=== PATIENT | male | born 1955 | race Caucasian/White ===

== ENCOUNTER 2023-01-31 17:30 | Inpatient (IN) | payer OTHER, SELFPAY ==
[2023-01-31] VITALS (24 sets, daily range): BP systolic 130–153; BP diastolic 71–84; PULSE 56–70; RESP 16–18; TEMP 36.3; O2SAT 96–98; BMI 23.5; BMI 26.4
--- NOTE | 2023-01-31 18:02 | ED_ITS ---
HPI - Abdominal Pain General Time Seen by Provider: 18:02 Date Seen: 01/31/23 Chief Complaint: Abdominal Pain Stated Complaint: Abdominal Pain Time Seen by Provider: 01/31/23 17:58 Source: patient and RN notes reviewed Mode of arrival: ambulatory Limitations: no limitations History of Present Illness HPI narrative: Patient is a 67-year-old male seen with the aid of the physician representative coming in with acute nausea vomiting and severe abdominal pain. He had emesis in triage. He is complaining of upper abdominal pain that is 10/10. He has never had any prior abdominal surgeries. He ate lunch around noon. About 2 hours later, started having the abdominal pain that is worsened. He wonders if it could be his gallbladder. Has had no fevers but feels chilled right now. No associated cough or cold symptoms. No diarrhea, no urinary symptoms. Denies any radiation to his chest. Denies any diabetes, no hypertension. Denies any medication use. MD elicited complaint: abdominal pain Related Data Home Medications Medication Instructions Recorded Confirmed No Known Home Medications 01/31/23 01/31/23 Allergies Allergy/AdvReac Type Severity Reaction Status Date / Time No Known Drug Allergies Allergy Verified 01/31/23 19:14 Review of Systems Status of ROS Reports: 10 or more systems reviewed and unremarkable except as noted in History and below [facility] Social History Smoking Status: Never smoker How often do you have a drink containing alcohol: never AUDIT-C Alcohol total score: 0 Non-prescribed substance use: denies use Exam Const: Vital Signs, click to edit/add: Vital Signs - 24 hr 01/31/23 17:41 01/31/23 18:11 01/31/23 19:49 Temperature 97.3 F L Pulse Rate Pulse Rate [Left P ulse Oximeter] 70 Respiratory Rate 16 Blood Pressure Blood Pressure [Ri ght Upper Arm] 144/81 H Pulse Oximetry 98 97 98 Oxygen Delivery Me thod Room Air Nasal Cannula Oxygen Flow Rate 1 01/31/23 18:58 01/31/23 19:00 01/31/23 19:29 Temperature Pulse Rate 60 61 61 Pulse Rate [Left P ulse Oximeter] Respiratory Rate Blood Pressure 146/73 H Blood Pressure [Ri ght Upper Arm] Pulse Oximetry 98 97 96 Oxygen Delivery Me thod Oxygen Flow Rate 01/31/23 19:30 01/31/23 19:45 01/31/23 20:06 Temperature Pulse Rate 59 L 58 L 59 L Pulse Rate [Left P ulse Oximeter] Respiratory Rate Blood Pressure 148/84 H Blood Pressure [Ri ght Upper Arm] Pulse Oximetry 96 98 96 Oxygen Delivery Me thod Nasal Cannula Oxygen Flow Rate 1 01/31/23 20:07 01/31/23 20:15 01/31/23 20:30 Temperature Pulse Rate 62 61 67 Pulse Rate [Left P ulse Oximeter] Respiratory Rate Blood Pressure Blood Pressure [Ri ght Upper Arm] Pulse Oximetry 97 96 96 Oxygen Delivery Me thod Nasal Cannula Nasal Cannula Nasal Cannula Oxygen Flow Rate 1 1 1 01/31/23 20:31 01/31/23 20:45 01/31/23 21:00 Temperature Pulse Rate 66 66 65 Pulse Rate [Left P ulse Oximeter] Respiratory Rate Blood Pressure 135/74 Blood Pressure [Ri ght Upper Arm] Pulse Oximetry 96 96 97 Oxygen Delivery Me thod Nasal Cannula Nasal Cannula Nasal Cannula Oxygen Flow Rate 1 1 1 01/31/23 21:02 01/31/23 21:03 01/31/23 21:15 Temperature Pulse Rate 70 64 66 Pulse Rate [Left P ulse Oximeter] Respiratory Rate Blood Pressure 131/71 Blood Pressure [Ri ght Upper Arm] Pulse Oximetry 96 97 96 Oxygen Delivery Me thod Nasal Cannula Nasal Cannula Nasal Cannula Oxygen Flow Rate 1 1 1 01/31/23 21:30 01/31/23 21:32 01/31/23 21:45 Temperature Pulse Rate 62 64 63 Pulse Rate [Left P ulse Oximeter] Respiratory Rate Blood Pressure 130/79 Blood Pressure [Ri ght Upper Arm] Pulse Oximetry 97 97 96 Oxygen Delivery Me thod Nasal Cannula Nasal Cannula Nasal Cannula Oxygen Flow Rate 1 1 1 01/31/23 22:00 01/31/23 22:01 Temperature Pulse Rate 58 L 61 Pulse Rate [Left P ulse Oximeter] Respiratory Rate Blood Pressure 142/78 H Blood Pressure [Ri ght Upper Arm] Pulse Oximetry 96 96 Oxygen Delivery Me thod Nasal Cannula Nasal Cannula Oxygen Flow Rate 1 1 67-year-old male whom looks uncomfortable. Pupils equal round reactive, sclera clear, no icterus. Oropharynx normal mucosa. Neck without any masses, do not appreciate any thyromegaly. Lungs are clear, no wheezing or crackles. CV regular rate and rhythm, no murmur, normal S1 and S2. Abdomen is mildly obese, epigastric to right upper quadrant tenderness with some generalization into the paraumbilical area. No lower extremity edema. Did ambulate into the ED of his own accord. Documenting provider has reviewed patient's vital signs: yes Course Course Hospital Course: patient is obviously in significant pain, will order IV morphine and Zofran. We will start with a right upper quadrant ultrasound. Certainly pancreatitis other intra-abdominal etiology including surgical pathology could be possible diagnoses. Will get a full complement of labs. Patient understands that he may have to have CT scanning. He is currently afebrile, infectious etiology seem less likely at this time. Consultations Consultation #1: Did talk to our general surgeon on-call Dr. Calvillo regarding this patient. Primary diagnosis would seem to be pancreatitis based on CT but the lipase is still pending. 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 She felt it would likely be difficult operate on him. 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 Also complicating his situation hears the elevated troponin. He definitely was not complaining of any chest pain. I did even ask if the pain radiated to his chest which he denied. This will have to be followed. His baseline EKG looks reassuring. She did feel that if he is just needing hospitalization for the pancreatitis it could be done here given that there are absolutely no beds in other institutions. I did eventually speak with our hospitalist regarding this patient and he did give report back to nursing staff who relayed message to me that he accepted the patient. Time: 19:58 Vital Signs Vital signs: Initial Vital Signs Temperature 97.3 F L 01/31/23 17:41 Temperature Source Temporal Artery Scan 01/31/23 17:41 Pulse Rate 70 01/31/23 17:41 Pulse Rhythm Regular 01/31/23 17:41 Respiratory Rate 16 01/31/23 17:41 Blood Pressure 144/81 H 01/31/23 17:41 Blood Pressure Mean 102 01/31/23 17:41 Blood Pressure Position Sitting 01/31/23 17:41 Pulse Oximetry 98 01/31/23 17:41 Oxygen Delivery Method Room Air 01/31/23 17:41 Vital Signs Temperature 97.3 F L 01/31/23 17:41 Pulse Rate 70 01/31/23 17:41 Respiratory Rate 16 01/31/23 17:41 Blood Pressure 144/81 H 01/31/23 17:41 Pulse Oximetry 98 01/31/23 17:41 Oxygen Delivery Method Room Air 01/31/23 17:41 Temperature 97.3 F L 01/31/23 17:41 Pulse Rate 61 01/31/23 22:01 Respiratory Rate 16 01/31/23 17:41 Blood Pressure 142/78 H 01/31/23 22:01 Pulse Oximetry 96 01/31/23 22:01 Oxygen Delivery Method Nasal Cannula 01/31/23 22:01 Oxygen Flow Rate 1 01/31/23 22:01 MDM - Abdominal Pain Differential Diagnosis Differential diagnosis: Likely abdominal pain, calculus of kidney, gastroenteritis, pancreatitis and small bowel obstruction Lab Data Attestation: I reviewed the patient's lab results. Labs: Lab Results 01/31/23 01/31/23 01/31/23 Range/Units 18:05 19:33 21:00 WBC 13.20 H (4.50-11.00) K/uL RBC 5.34 (4.30-5.90) m/uL Hgb 15.9 (13.5-17.5) gm/dL Hct 46.6 (37.0-53.0) % MCV 87 (80-100) fL MCH 30 (26-34) pg MCHC 34 (32-36) gm/dL RDW Coeff of Natalya 12.8 (11.5-15.5) % Plt Count 268 (140-440) K/uL Neut % (Auto) 79.9 H (42.0-72.0) % Lymph % (Auto) 14.1 L (20-44) % Gaines % (Auto) 5.5 (0.0-11.0) % Eos % (Auto) 0.2 (0.0-7.0) % Baso % (Auto) 0.1 (0.0-3.0) % Neut # (Auto) 10.50 H (1.7-7.0) K/uL Lymph # (Auto) 1.90 (0.90-2.90) K/uL Gaines # (Auto) 0.70 (0.00-0.90) K/UL Eos # (Auto) 0.00 (0.00-0.50) K/uL Baso # (Auto) 0.00 (0.00-0.30) K/uL Sodium 138 (135-149) mmol/L Potassium 3.9 (3.6-5.1) mmol/L Chloride 106 (96-114) mmol/L Carbon Dioxide 24 (20-32) mmol/L BUN 20 (7-30) mg/dL Creatinine 0.9 (0.5-1.5) mg/dL Estimated Creat Clear 60.02 Estimated GFR 94 ml/min Glucose 168 H (60-115) mg/dL Lactate 2.3 H (0.5-1.9) mmol/L Calcium 9.3 (8.4-10.6) mg/dL Total Bilirubin 1.7 H (0.1-1.5) mg/dL Direct Bilirubin 0.9 H (0.0-0.5) mg/dL AST 207 H (12-35) U/L ALT 106 H (4-50) U/L Alkaline Phosphatase 126 (40-150) U/L Lactate Baseline 1.5 (0.5-1.9) mmol/L Troponin I 0.11 H* 0.11 H* (0.01-0.04) ng/mL C-Reactive Protein 0.7 (0.5-1.0) mg/dL Total Protein 7.9 (6.0-8.3) g/dL Albumin 4.5 (3.3-5.0) g/dL Lipase 34398 H (23-300) U/L SARS-CoV-2 (PCR) Negative SARS-CoV-2 (Negative) Imaging Data US - abdomen: Attestation: I have reviewed the pertinent imaging results. Radiologist's impression: Patient: BRYAN KERR Facility:?[facility] Patient ID:?[id number] Site Patient ID:?[id number]. Site :?[id number] Study:?US Abdomen -01/31/2023 7:15:09 PM Ordering Physician:Osvaldo Mahoney Final Report: INDICATION: acute severe epigastric pain. TECHNIQUE: Ultrasound abdomen limited. Sonographic images of the right upper quadrant were obtained using pritchett-scale and color Doppler images. COMPARISON: CT abdomen and pelvis and pelvis from the same day. FINDINGS: Liver: Normal in size and echotexture. No suspicious masses. No intrahepatic biliary dilatation. Large 6.8 x 5.7 x 6.6 cm round hyperechoic mass adjacent to the right hepatic lobe without internal vascular flow. Gallbladder: Contracted. No stones or sludge. Normal wall thickness. No pericholecystic fluid. Common bile duct: Not visualized. Pancreas: Limited visualization is unremarkable. Right kidney: Normal in size. Normal echotexture and cortex. No suspicious m asses, stones, or hydronephrosis. Vasculature: Proximal IVC is unremarkable. IMPRESSION: Large 6.8 cm round hyperechoic mass adjacent to the right hepatic lobe without internal vascular flow. In conjunction with the comparison CT, this represents a large adrenal myelolipoma. The remainder of the exam is unremarkable. Dictated by Tylor Ovalle MD @ 01/31/2023 7:43:28 PM (Electronic Signature) CT scan - abdomen: Attestation: I have reviewed the pertinent imaging results. Radiologist's impression: Patient: BRYAN KERR Facility:?[facility] Patient ID:?[id number] Site Patient ID:?[id number]. Site :?[id number] Study:?CT Abdomen/Pelvis w/ 67cc [id number]/11/2023 7:23:59 PM Ordering Physician:?Eliz Mahoney Final Report: INDICATION: Abdominal pain, nausea, vomiting. TECHNIQUE: CT abdomen and pelvis acquired with 67 cc Isovue 370 IV contrast. COMPARISON: Abdominal ultrasound from the same day. FINDINGS: Lower chest: Minimal bilateral posterior dependent atelectasis. Calcified mediastinal lymph node appears Liver: Right adrenal fatty mass extending into the right hepatic lobe. Normal in size and otherwise normal attenuation. No additional suspicious masses. Gallbladder and bile ducts: Contracted. There is hyperdense material in the gallbladder neck which may represent calcified stones or biliary sludge. There is circumferential narrowing of the gallbladder fundus which could represent annular adenomyomatosis. No pericholecystic fluid or mural thickening. Mild intrahepatic biliary duct dilatation. Normal diameter common bile duct. Pancreas: Mild diffuse peripancreatic inflammation without focal well-formed fluid collection. Homogeneous parenchymal enhancement. No mass identified. Spleen: Calcified granuloma. Normal in size. No suspicious masses. Adrenal glands: Large right adrenal hypodense mass with macroscopic fat measuring 5.8 x 5.6 x 6.7 cm. The mass extends into the right hepatic lobe. No evidence for intra or extra lesional hemorrhage. There is no compression or mass effect on the inferior vena cava or right kidney. Kidneys: Unremarkable. No suspicious masses, stones, or hydronephrosis. GI tract: Small hiatal hernia. Diverticulosis without pericolonic inflammation. Normal in caliber. Normal appendix. Vasculature: Abdominal aorta is normal in caliber. Mesenteric arteries are patent. Lymph nodes: No lymphadenopathy. Peritoneum/Abdominal Wall: Unremarkable. No free air or significant free fluid. Pelvis: Unremarkable. Bones: Unremarkable for age. IMPRESSION: Acute pancreatitis without evidence of necrosis or peripancreatic fluid collection. Large, 6.7 cm right adrenal myelolipoma with extension into the right hepatic lobe. Recommend urology or general surgery consultation. Probable cholelithiasis versus biliary sludge. No evidence for cholecystitis. Possible annular adenomyomatosis. Please note that all CT scans at this facility use dose modulation, iterative reconstruction, and/or weight-based dosing when appropriate to reduce radiation dose to as low as reasonably achievable. Dictated by Tylor Ovalle MD @ 01/31/2023 7:54:02 PM (Electronic Signature) ECG Data Attestation: I personally reviewed and interpreted this ECG as follows: ( sinus bradycardia, 57 beats per minute. No acute ischemia on a or T-wave pattern abnormality. Isolated flipped T-waves in lead V1. QT corrected 412 milliseconds.) ECG interpretation date: 01/31/23 ECG interpretation time: 18:49 Prior ECG tracings: not available for review Critical Care Time Critical Care Time Critical Care Time: No Discharge Plan Discharge Clinical Impression: Pancreatitis Patient Disposition: Admitted As Inpatient Condition: Unchanged
--- NOTE | 2023-01-31 18:11 | CRLHL7_ITS ---
For Patients: As a result of the Century Cures Act, medical imaging exams and procedure reports are released immediately into your electronic medical record. You may view this report before your referring provider. If you have questions, please contact your health care provider. INDICATION: acute severe epigastric pain. TECHNIQUE: Ultrasound abdomen limited. Sonographic images of the right upper quadrant were obtained using pritchett-scale and color Doppler images. COMPARISON: CT abdomen and pelvis and pelvis from the same day. FINDINGS: Liver: Normal in size and echotexture. No suspicious masses. No intrahepatic biliary dilatation. Large 6.8 x 5.7 x 6.6 cm round hyperechoic mass adjacent to the right hepatic lobe without internal vascular flow. Gallbladder: Contracted. No stones or sludge. Normal wall thickness. No pericholecystic fluid. Common bile duct: Not visualized. Pancreas: Limited visualization is unremarkable. Right kidney: Normal in size. Normal echotexture and cortex. No suspicious masses, stones, or hydronephrosis. Vasculature: Proximal IVC is unremarkable. IMPRESSION: Large 6.8 cm round hyperechoic mass adjacent to the right hepatic lobe without internal vascular flow. In conjunction with the comparison CT, this represents a large adrenal myelolipoma. The remainder of the exam is unremarkable. Dictated by Tylor Ovalle MD @ 01/31/2023 7:43:28 PM (Electronically Signed)
[2023-01-31 18:22] LABS: Lactate* 2.3 mmol/L (0.5-1.9)
[2023-01-31 18:23] LABS: Basophils Percent Auto 0.1 % (0.0-3.0); Eosinophils Percent Auto 0.2 % (0.0-7.0); Hematocrit 46.6 % (37.0-53.0); Hemoglobin* 15.9 gm/dL (13.5-17.5); Immature Granulocytes Pct Auto 0.2 %; Lymphocytes Percent Auto 14.1 % (20-44); Mean Corpuscular HGB Conc 34 gm/dL (32-36); Mean Corpuscular Hemoglobin 30 pg (26-34); Mean Corpuscular Volume 87 fL (80-100); Monocytes Percent Auto 5.5 % (0.0-11.0); Neutrophils Percent Auto 79.9 % (42.0-72.0); Platelet Count* 268 K/uL (140-440); RDW Coefficient of Variation % 12.8 % (11.5-15.5); Red Blood Count 5.34 m/uL (4.30-5.90)
[2023-01-31 18:28] LABS: Slide Review Reflex No
[2023-01-31 18:43] LABS: Albumin* 4.5 g/dL (3.3-5.0); Chloride* 106 mmol/L (96-114)
[2023-01-31 18:44] LABS: Potassium* 3.9 mmol/L (3.6-5.1); Sodium* 138 mmol/L (135-149)
[2023-01-31] MEDS: 0.9 % SODIUM CHLORIDE 500 ML 500 ML IV (18:45)
[2023-01-31 18:46] LABS: Creatinine* 0.9 mg/dL (0.5-1.5); Est. Creatinine Clearance* 60.02; Estimated Glomerular Filt Rate 94 ml/min
[2023-01-31 18:47] LABS: Alanine Aminotransferase* 106 U/L (4-50); Alkaline Phosphatase* 126 U/L (40-150); Aspartate Amino Transferase* 207 U/L (12-35); Bilirubin Total* 1.7 mg/dL (0.1-1.5); Blood Urea Nitrogen* 20 mg/dL (7-30); Calcium* 9.3 mg/dL (8.4-10.6); Carbon Dioxide* 24 mmol/L (20-32); Glucose* 168 mg/dL (60-115); Total Protein* 7.9 g/dL (6.0-8.3)
--- NOTE | 2023-01-31 18:48 | CRLHL7_ITS ---
For Patients: As a result of the Century Cures Act, medical imaging exams and procedure reports are released immediately into your electronic medical record. You may view this report before your referring provider. If you have questions, please contact your health care provider. INDICATION: Abdominal pain, nausea, vomiting. TECHNIQUE: CT abdomen and pelvis acquired with 67 cc Isovue 370 IV contrast. COMPARISON: Abdominal ultrasound from the same day. FINDINGS: Lower chest: Minimal bilateral posterior dependent atelectasis. Calcified mediastinal lymph node appears Liver: Right adrenal fatty mass extending into the right hepatic lobe. Normal in size and otherwise normal attenuation. No additional suspicious masses. Gallbladder and bile ducts: Contracted. There is hyperdense material in the gallbladder neck which may represent calcified stones or biliary sludge. There is circumferential narrowing of the gallbladder fundus which could represent annular adenomyomatosis. No pericholecystic fluid or mural thickening. Mild intrahepatic biliary duct dilatation. Normal diameter common bile duct. Pancreas: Mild diffuse peripancreatic inflammation without focal well-formed fluid collection. Homogeneous parenchymal enhancement. No mass identified. Spleen: Calcified granuloma. Normal in size. No suspicious masses. Adrenal glands: Large right adrenal hypodense mass with macroscopic fat measuring 5.8 x 5.6 x 6.7 cm. The mass extends into the right hepatic lobe. No evidence for intra or extra lesional hemorrhage. There is no compression or mass effect on the inferior vena cava or right kidney. Kidneys: Unremarkable. No suspicious masses, stones, or hydronephrosis. GI tract: Small hiatal hernia. Diverticulosis without pericolonic inflammation. Normal in caliber. Normal appendix. Vasculature: Abdominal aorta is normal in caliber. Mesenteric arteries are patent. Lymph nodes: No lymphadenopathy. Peritoneum/Abdominal Wall: Unremarkable. No free air or significant free fluid. Pelvis: Unremarkable. Bones: Unremarkable for age. IMPRESSION: Acute pancreatitis without evidence of necrosis or peripancreatic fluid collection. Large, 6.7 cm right adrenal myelolipoma with extension into the right hepatic lobe. Recommend urology or general surgery consultation. Probable cholelithiasis versus biliary sludge. No evidence for cholecystitis. Possible annular adenomyomatosis. Please note that all CT scans at this facility use dose modulation, iterative reconstruction, and/or weight-based dosing when appropriate to reduce radiation dose to as low as reasonably achievable. Dictated by Tylor Ovalle MD @ 01/31/2023 7:54:02 PM (Electronically Signed)
[2023-01-31 18:50] LABS: C Reactive Protein* 0.7 mg/dL (0.5-1.0)
[2023-01-31] MEDS: ONDANSETRON 2 MG/ML inj 4 MG IVP (18:55)
[2023-01-31] MEDS: MORPHINE 4 MG/ML INJ IVP (18:55)
[2023-01-31 18:56] LABS: Bilirubin Direct* 0.9 mg/dL (0.0-0.5)
[2023-01-31 19:23] LABS: Troponin I* 0.11 ng/mL (0.01-0.04)
--- NOTE | 2023-01-31 19:46 | ED.NURSE ---
Pt O2 noted to be satting around 87% on room air. 2L O2 NC applied. MD notified. Pt satting ~99% on 2L. Titrated down to 1L.
[2023-01-31 20:19] LABS: SARS PCR* Negative SARS-CoV-2 (Negative)
[2023-01-31 20:24] LABS: Lipase* 25171 U/L (23-300)
[2023-01-31 21:35] LABS: Lactate Sepsis w/Reflex* 1.5 mmol/L (0.5-1.9)
[2023-01-31 21:41] LABS: Troponin I* 0.11 ng/mL (0.01-0.04)
[2023-01-31] MEDS: LACTATED RINGERS 1000 ML 1,000 ML IV (22:45)
--- NOTE | 2023-01-31 23:03 | PM.IMHP1 ---
Hospitalist- H&P: HPI History of Present Illness Date Seen: 01/31/23 Chief complaint: Abdominal Pain Narrative: Stefan Merino is a 67 year old male with limited past medical history presenting for evaluation of abdominal pain. The patient endorses nausea and vomiting with worsening epigastric abdominal pain, radiating to his back. Abdominal pain is 10/10 intensity. he denies chest pain, sob, fever. Denies chest pressure. He denies any alcohol intake/consumption. Denies hx of Diabetes. He denies any prescription medications. In the ED notable labs included WBC 13.2, lactate 2.3, Tbili 1.7, Dbili 0.9, AST 207, ALT 106, Trop 0.11-.0.11, lipase [address]. CT Abdomen showed Acute pancreatitis without evidence of necrosis or peripancreatic fluid collection. Large, 6.7 cm right adrenal myelolipoma with extension into the right hepatic lobe. Recommend urology or general surgery consultation. Probable cholelithiasis versus biliary sludge. No evidence for cholecystitis. Possible annular adenomyomatosis. He was started on IVf and admitted for further evaluation. Abdom US IMPRESSION: Large 6.8 cm round hyperechoic mass adjacent to the right hepatic lobe without internal vascular flow. In conjunction with the comparison CT, this represents a large adrenal myelolipoma. The remainder of the exam is unremarkable. CBD not visualized CT ABD Acute pancreatitis without evidence of necrosis or peripancreatic fluid collection. Large, 6.7 cm right adrenal myelolipoma with extension into the right hepatic lobe. Recommend urology or general surgery consultation. Probable cholelithiasis versus biliary sludge. No evidence for cholecystitis. Possible annular adenomyomatosis. PMHx-none PSHx-denies surgical hx Fam Hx-denies family hx of Diabetes Review of Systems Status of ROS: Reports: 10 or more systems reviewed and unremarkable except as noted in History and below [facility] Social History Smoking Status: Never smoker How often do you have a drink containing alcohol: never AUDIT-C Alcohol total score: 0 Non-prescribed substance use: denies use Meds Home Medications and Allergies Home Medications Medication Instructions Recorded Confirmed Type No Known Home Medications 01/31/23 01/31/23 History Allergies Allergy/AdvReac Type Severity Reaction Status Date / Time No Known Drug Allergies Allergy Verified 01/31/23 19:14 Exam Narrative: Exam Narrative: Gen: no acute distress HEENT: NCAT EOMI mmm Neck: Supple CV: RRR normal s1 s2 Lungs: CTAB Abd: mid epigastric tenderness no rebound or guarding Neuro: Alert, oriented, CN grossly intact; nonfocal screening exam Psych: appropriate affect MSK: age appropriate muscle mass Skin; Warm, dry no rash on face Const: Vital Signs, click to edit/add: Vital Signs - 24 hr 01/31/23 17:41 01/31/23 18:11 01/31/23 19:49 Temperature 97.3 F L Pulse Rate Pulse Rate [Left P ulse Oximeter] 70 Respiratory Rate 16 Blood Pressure Blood Pressure [Ri ght Upper Arm] 144/81 H Pulse Oximetry 98 97 98 Oxygen Delivery Me thod Room Air Nasal Cannula Oxygen Flow Rate 1 01/31/23 18:58 01/31/23 19:00 01/31/23 19:29 Temperature Pulse Rate 60 61 61 Pulse Rate [Left P ulse Oximeter] Respiratory Rate Blood Pressure 146/73 H Blood Pressure [Ri ght Upper Arm] Pulse Oximetry 98 97 96 Oxygen Delivery Me thod Oxygen Flow Rate 01/31/23 19:30 01/31/23 19:45 01/31/23 20:06 Temperature Pulse Rate 59 L 58 L 59 L Pulse Rate [Left P ulse Oximeter] Respiratory Rate Blood Pressure 148/84 H Blood Pressure [Ri ght Upper Arm] Pulse Oximetry 96 98 96 Oxygen Delivery Me thod Nasal Cannula Oxygen Flow Rate 1 01/31/23 20:07 01/31/23 20:15 01/31/23 20:30 Temperature Pulse Rate 62 61 67 Pulse Rate [Left P ulse Oximeter] Respiratory Rate Blood Pressure Blood Pressure [Ri ght Upper Arm] Pulse Oximetry 97 96 96 Oxygen Delivery Me thod Nasal Cannula Nasal Cannula Nasal Cannula Oxygen Flow Rate 1 1 1 01/31/23 20:31 01/31/23 20:45 01/31/23 21:00 Temperature Pulse Rate 66 66 65 Pulse Rate [Left P ulse Oximeter] Respiratory Rate Blood Pressure 135/74 Blood Pressure [Ri ght Upper Arm] Pulse Oximetry 96 96 97 Oxygen Delivery Me thod Nasal Cannula Nasal Cannula Nasal Cannula Oxygen Flow Rate 1 1 1 01/31/23 21:02 01/31/23 21:03 01/31/23 21:15 Temperature Pulse Rate 70 64 66 Pulse Rate [Left P ulse Oximeter] Respiratory Rate Blood Pressure 131/71 Blood Pressure [Ri ght Upper Arm] Pulse Oximetry 96 97 96 Oxygen Delivery Me thod Nasal Cannula Nasal Cannula Nasal Cannula Oxygen Flow Rate 1 1 1 01/31/23 21:30 01/31/23 21:32 01/31/23 21:45 Temperature Pulse Rate 62 64 63 Pulse Rate [Left P ulse Oximeter] Respiratory Rate Blood Pressure 130/79 Blood Pressure [Ri ght Upper Arm] Pulse Oximetry 97 97 96 Oxygen Delivery Me thod Nasal Cannula Nasal Cannula Nasal Cannula Oxygen Flow Rate 1 1 1 01/31/23 22:00 01/31/23 22:01 Temperature Pulse Rate 58 L 61 Pulse Rate [Left P ulse Oximeter] Respiratory Rate Blood Pressure 142/78 H Blood Pressure [Ri ght Upper Arm] Pulse Oximetry 96 96 Oxygen Delivery Me thod Nasal Cannula Nasal Cannula Oxygen Flow Rate 1 1 Hospitalist - H&P: Result Labs Labs: Short CBC 01/31/23 Range/Units 18:05 WBC 13.20 H (4.50-11.00) K/uL Hgb 15.9 (13.5-17.5) gm/dL Hct 46.6 (37.0-53.0) % Plt Count 268 (140-440) K/uL BMP 01/31/23 18:05 Sodium 138 Potassium 3.9 Chloride 106 Carbon Dioxide 24 BUN 20 Creatinine 0.9 Glucose 168 H Calcium 9.3 Cardiac Enzymes 01/31/23 01/31/23 Range/Units 18:05 21:00 Troponin I 0.11 H* 0.11 H* (0.01-0.04) ng/mL Liver Function 01/31/23 Range/Units 18:05 Total Bilirubin 1.7 H (0.1-1.5) mg/dL Direct Bilirubin 0.9 H (0.0-0.5) mg/dL AST 207 H (12-35) U/L ALT 106 H (4-50) U/L Alkaline Phosphatase 126 (40-150) U/L Albumin 4.5 (3.3-5.0) g/dL Assessment and Plan Assessment and plan (1) Pancreatitis: Status: Acute (2) Abnormal LFTs: Status: Acute (3) Hyperglycemia: Status: Acute (4) Elevated troponin: Status: Acute (5) Non-Northern Irish speaking patient: Status: Acute Plan Stefan Merino is a 67 year old male with limited past medical history presenting for evaluation of abdominal pain. The patient endorses nausea and vomiting with worsening epigastric abdominal pain, radiating to his back. Abdominal pain is 10/10 intensity. he denies chest pain, sob, fever. Denies chest pressure. He denies any alcohol intake/consumption. Denies hx of Diabetes. He denies any prescription medications. In the ED notable labs included WBC 13.2, lactate 2.3, Tbili 1.7, Dbili 0.9, AST 207, ALT 106, Trop 0.11-.0.11, lipase [address]14. CT Abdomen showed?Acute pancreatitis without evidence of necrosis or peripancreatic fluid collection. Large, 6.7 cm right adrenal myelolipoma with extension into the right hepatic lobe. Recommend urology or general surgery consultation. Probable cholelithiasis versus biliary sludge. No evidence for cholecystitis. Possible annular adenomyomatosis. He was started on IVf and admitted for further evaluation. 1. Acute pancreatitis; rule out gallstone pancreatitis, CBD not visualized on US 2. lactic acidosis; resolved 3. Elevated Troponin; likely supply demand mediated ischemia secondary to number #1 4. Leukocytosis; likely reactive secondary to #1 5. Large right adrenal myelolipoma Plan -admit to inpatient -aggressive IVF -pain control -npo -antiemetics -Follow LFts, lipase -repeat lactate normalized -check Lipid panel -check a1c -tele -Echo -PPI -MRCP in AM -non emergent surgical consult in AM (ED discussed with Gen Surgery in ED) Code-Full DVT ppx-SCD
[2023-01-31] MEDS: cefTRIAXone 2 GM in 0.9 % SODIUM CHLORIDE Mini-bag 100 ML IVPB (23:53)
[2023-01-31] MEDS: PANTOPRAZOLE SODIUM 40 MG INJ IVP (23:56)
[2023-01-31] MEDS: LACTATED RINGERS 1000 ML 1,000 ML 250 ML IV (23:58)
[2023-02-01] VITALS (9 sets, daily range): BP systolic 147–163; BP diastolic 64–88; PULSE 51–67; RESP 14–18; TEMP 36.3–36.9; O2SAT 92–97
[2023-02-01] MEDS: LACTATED RINGERS 1000 ML 1,000 ML 250 ML IV ×5 (04:52→21:42)
--- NOTE | 2023-02-01 06:29 | PC.NURSE ---
[id number] Shift Summary? 89 F. O. 67 Pancreatitis ? Admitted pt around 2230. Pt comes from apartment to ED with abdominal pain. Friend at bedside as emergency contact. Pt is Iraqi speaking and video position classification specialist was utilized. Oriented to room, call light, etc.?Reports a ?bad gallbladder? but no past surgeries. NPO for MRI today (screening in room) with ice chips. IV abx and protonix given, LR running @ 250. Pain managed and declined PRNs. Denies nausea. On tele with no issues. Elevated troponin,?lipase, and WBCs. On 1L for desating overnight but may wean as able. Up to BR with SBA. Last BM 01/31?
--- NOTE | 2023-02-01 07:00 | CRLHL7_ITS ---
For Patients: As a result of the Century Cures Act, medical imaging exams and procedure reports are released immediately into your electronic medical record. You may view this report before your referring provider. If you have questions, please contact your health care provider. Indication: Abdominal pain. Technique: Multisequence multiplanar MRI of the abdomen without IV contrast. Comparison: CT abdomen/pelvis dated 01/31/2023. Findings: Liver: Mild diffuse hepatic steatosis. Bile ducts: No significant biliary duct dilation. There are few punctate filling defects within the common bile duct, compatible with choledocholithiasis. Gallbladder: Few small layering gallstones at the gallbladder neck. No significant pericholecystic inflammation. Pancreas: Diffuse peripancreatic edema, compatible with acute pancreatitis. There is no dilation of the main pancreatic duct. No organized fluid collection. Spleen: Unremarkable. Adrenals: Heterogeneous predominantly fat containing right adrenal mass measuring up to 6.5 cm, which appears to have invaded into the right lobe of the liver. Kidneys: No hydronephrosis bilaterally. Small left renal cyst is noted. Retroperitoneum: No lymphadenopathy. Visualized Bowel and mesentery: Visualized bowel is nondilated. Scattered colonic diverticulosis, without evidence of acute diverticulitis. Vessels: Unremarkable for unenhanced study. Abdominal wall: No acute abdominal wall abnormality. Bones: No acute osseous abnormality. Impression: 1. Diffuse peripancreatic edema, compatible with acute pancreatitis. No organized fluid collection. 2. Few punctate filling defects within the common bile duct, compatible with choledocholithiasis. No significant biliary duct dilation. 3. Cholelithiasis. Mild diffuse hepatic steatosis. 4. Large heterogeneous predominantly fat containing right adrenal mass measuring up to 6.5 cm, which appears to have invaded into the right lobe of the liver. Dictated by Ivon Greco MD @ 02/01/2023 2:03:54 PM (Electronically Signed)
[2023-02-01] MEDS: OXYCODONE 5 MG TABLET PO (07:07)
[2023-02-01] MEDS: ONDANSETRON 2 MG/ML inj 4 MG IVP (07:08)
[2023-02-01 07:24] LABS: Albumin* 3.9 g/dL (3.3-5.0)
[2023-02-01 07:25] LABS: Chloride* 108 mmol/L (96-114); Potassium* 3.8 mmol/L (3.6-5.1); Sodium* 138 mmol/L (135-149)
[2023-02-01 07:27] LABS: Aspartate Amino Transferase* 68 U/L (12-35); Bilirubin Direct* 0.3 mg/dL (0.0-0.5); Blood Urea Nitrogen* 16 mg/dL (7-30); Carbon Dioxide* 23 mmol/L (20-32); Creatinine* 0.7 mg/dL (0.5-1.5); Est. Creatinine Clearance* 60.02; Estimated Glomerular Filt Rate 101 ml/min; Total Protein* 6.9 g/dL (6.0-8.3)
[2023-02-01 07:28] LABS: Alanine Aminotransferase* 83 U/L (4-50); Alkaline Phosphatase* 104 U/L (40-150); Calcium* 8.5 mg/dL (8.4-10.6); Cholesterol* 138 mg/dL (90-199); Glucose* 175 mg/dL (60-115); HDL Cholesterol* 64 mg/dL (>=40); Triglycerides* 30 mg/dL (40-149)
[2023-02-01 07:29] LABS: INR 1.14 (0.91-1.10); Prothrombin Time 15.2 Seconds
[2023-02-01 07:40] LABS: Hemoglobin A1C* 6.46 % (0-5.6)
[2023-02-01 07:41] LABS: LDL Cholesterol Calculated 68 mg/dL (<100); Lipase* 2030 U/L (23-300); Procalcitonin* 0.45 ng/mL (<0.50)
[2023-02-01 07:48] LABS: Hematocrit 47.4 % (37.0-53.0); Hemoglobin* 16.2 gm/dL (13.5-17.5); Immature Granulocytes Pct Auto 0.3 %; Lymphocytes Percent Auto 3.4 % (20-44); Mean Corpuscular HGB Conc 34 gm/dL (32-36); Mean Corpuscular Hemoglobin 30 pg (26-34); Mean Corpuscular Volume 88 fL (80-100); Monocytes Percent Auto 4.4 % (0.0-11.0); Neutrophils Percent Auto 91.9 % (42.0-72.0); Platelet Count* 235 K/uL (140-440); RDW Coefficient of Variation % 13.3 % (11.5-15.5); Red Blood Count 5.36 m/uL (4.30-5.90); White Blood Count* 14.83 K/uL (4.50-11.00)
[2023-02-01 07:56] LABS: Slide Review Reflex No
[2023-02-01 08:06] LABS: Troponin I* 0.11 ng/mL (0.01-0.04)
[2023-02-01] MEDS: HYDROmorphone 0.5 mg/0.5 ml inj IVP ×2 (08:39→11:30)
[2023-02-01] MEDS: SODIUM CHLORIDE 0.9 % (FLUSH) 10 ML SYRINGE 5 ML IVF (08:40)
--- NOTE | 2023-02-01 14:52 | PC.NURSE ---
Patient is kittitian speaking and requires meter shop superintendent, tech writer utilized IPad meter shop superintendent for interactions.Patient alert and oriented x 3, patient was sleeping on and off throughout the shift. Pain to epigastric and left upper quadrant. PRn dilaudid and effective in reducing pain report. Patient continues to be NPO. Bowel sounds active x 4 quadrant.
--- NOTE | 2023-02-01 14:54 | PM.IMPN1 ---
Progress Note: A&P Assessment and plan (1) Pancreatitis: Problem details: - lipase on admission 01853, trended down to 1999 on 02/01 Status: Acute (2) Abnormal LFTs: Problem details: - noted on admission 01/31, trending downward Status: Acute (3) Hyperglycemia: Problem details: - A1C 6.5 Status: Acute (4) Elevated troponin: Problem details: - peak at 0.11, TTE 01/31 and results pending Status: Acute (5) Choledocholithiasis: Problem details: - on MRCP 02/01 - reviewed with Dr. Carrillo of [facility]; we've arranged for transfer and ERCP at [facility] tomorrow afternoon Status: Acute Subjective Date Seen: 02/01/23 Interval history: Patient continues to have intermittent left-sided abdominal pain, specifically denies chest pain or dyspnea. No other concerns for hospitalist team this morning. MRCP exhibits pancreatitis and choledocholithiasis, in addition to a large heterogeneous predominantly fat containing right adrenal mass that appears to invade the right lobe of the liver. Exam Narrative: Exam Narrative: GEN: Alert and nontoxic in appearance HEENT: Normal external ears, EOMIs bilaterally, no scleral icterus CV: RRR, No concerning murmurs, rubs, or gallops R: LCTA bilaterally without concerning wheezing, air movement adequate Ab: soft, mild discomfort LLQ, negative Reardon's sign Ext: wwp, no concerning edema Skin: No jaundice, no concerning skin lesions or rashes on exposed skin Neuro: Nonfocal Psych: Appropriate Const: Vital Signs, click to edit/add: Vital Signs - 24 hr 01/31/23 17:41 01/31/23 18:11 01/31/23 19:49 Temperature 97.3 F L Pulse Rate Pulse Rate [Left P ulse Oximeter] 70 Pulse Rate [Pulse Oximeter] Respiratory Rate 16 Blood Pressure Blood Pressure [Le ft Arm] Blood Pressure [Ri ght Upper Arm] 144/81 H Pulse Oximetry 98 97 98 Oxygen Delivery Me thod Room Air Nasal Cannula Oxygen Flow Rate 1 01/31/23 18:58 01/31/23 19:00 01/31/23 19:29 Temperature Pulse Rate 60 61 61 Pulse Rate [Left P ulse Oximeter] Pulse Rate [Pulse Oximeter] Respiratory Rate Blood Pressure 146/73 H Blood Pressure [Le ft Arm] Blood Pressure [Ri ght Upper Arm] Pulse Oximetry 98 97 96 Oxygen Delivery Me thod Oxygen Flow Rate 01/31/23 19:30 01/31/23 19:45 01/31/23 20:06 Temperature Pulse Rate 59 L 58 L 59 L Pulse Rate [Left P ulse Oximeter] Pulse Rate [Pulse Oximeter] Respiratory Rate Blood Pressure 148/84 H Blood Pressure [Le ft Arm] Blood Pressure [Ri ght Upper Arm] Pulse Oximetry 96 98 96 Oxygen Delivery Me thod Nasal Cannula Oxygen Flow Rate 1 01/31/23 20:07 01/31/23 20:15 01/31/23 20:30 Temperature Pulse Rate 62 61 67 Pulse Rate [Left P ulse Oximeter] Pulse Rate [Pulse Oximeter] Respiratory Rate Blood Pressure Blood Pressure [Le ft Arm] Blood Pressure [Ri ght Upper Arm] Pulse Oximetry 97 96 96 Oxygen Delivery Me thod Nasal Cannula Nasal Cannula Nasal Cannula Oxygen Flow Rate 1 1 1 01/31/23 20:31 01/31/23 20:45 01/31/23 21:00 Temperature Pulse Rate 66 66 65 Pulse Rate [Left P ulse Oximeter] Pulse Rate [Pulse Oximeter] Respiratory Rate Blood Pressure 135/74 Blood Pressure [Le ft Arm] Blood Pressure [Ri ght Upper Arm] Pulse Oximetry 96 96 97 Oxygen Delivery Me thod Nasal Cannula Nasal Cannula Nasal Cannula Oxygen Flow Rate 1 1 1 01/31/23 21:02 01/31/23 21:03 01/31/23 21:15 Temperature Pulse Rate 70 64 66 Pulse Rate [Left P ulse Oximeter] Pulse Rate [Pulse Oximeter] Respiratory Rate Blood Pressure 131/71 Blood Pressure [Le ft Arm] Blood Pressure [Ri ght Upper Arm] Pulse Oximetry 96 97 96 Oxygen Delivery Me thod Nasal Cannula Nasal Cannula Nasal Cannula Oxygen Flow Rate 1 1 1 01/31/23 21:30 01/31/23 21:32 01/31/23 21:45 Temperature Pulse Rate 62 64 63 Pulse Rate [Left P ulse Oximeter] Pulse Rate [Pulse Oximeter] Respiratory Rate Blood Pressure 130/79 Blood Pressure [Le ft Arm] Blood Pressure [Ri ght Upper Arm] Pulse Oximetry 97 97 96 Oxygen Delivery Me thod Nasal Cannula Nasal Cannula Nasal Cannula Oxygen Flow Rate 1 1 1 01/31/23 22:00 01/31/23 22:01 01/31/23 22:36 Temperature Pulse Rate 58 L 61 Pulse Rate [Left P ulse Oximeter] Pulse Rate [Pulse Oximeter] 56 L Respiratory Rate 18 Blood Pressure 142/78 H Blood Pressure [Le ft Arm] 153/83 H Blood Pressure [Ri ght Upper Arm] Pulse Oximetry 96 96 97 Oxygen Delivery Me thod Nasal Cannula Nasal Cannula Nasal Cannula Oxygen Flow Rate 1 1 1 01/31/23 22:36 02/01/23 02:47 02/01/23 02:51 Temperature 97.3 F L Pulse Rate 57 L Pulse Rate [Left P ulse Oximeter] Pulse Rate [Pulse Oximeter] 58 L Respiratory Rate 18 Blood Pressure Blood Pressure [Le ft Arm] 163/88 H Blood Pressure [Ri ght Upper Arm] Pulse Oximetry 92 Oxygen Delivery Me thod Nasal Cannula Nasal Cannula Oxygen Flow Rate 1 1 02/01/23 02:47 02/01/23 07:47 02/01/23 07:00 Temperature 97.3 F L 98.4 F Pulse Rate 51 L Pulse Rate [Left P ulse Oximeter] Pulse Rate [Pulse Oximeter] 58 L 52 L Respiratory Rate 18 14 Blood Pressure Blood Pressure [Le ft Arm] 163/88 H 163/81 H Blood Pressure [Ri ght Upper Arm] Pulse Oximetry 92 93 Oxygen Delivery Me thod Nasal Cannula Room Air Oxygen Flow Rate 1 02/01/23 11:00 Temperature 97.6 F Pulse Rate Pulse Rate [Left P ulse Oximeter] Pulse Rate [Pulse Oximeter] 52 L Respiratory Rate 16 Blood Pressure Blood Pressure [Le ft Arm] 147/64 H Blood Pressure [Ri ght Upper Arm] Pulse Oximetry 97 Oxygen Delivery Me thod Room Air Oxygen Flow Rate Labs Labs: Laboratory Results - last 24 hr 01/31/23 01/31/23 01/31/23 18:05 19:33 21:00 WBC 13.20 H RBC 5.34 Hgb 15.9 Hct 46.6 MCV 87 MCH 30 MCHC 34 RDW Coeff of Natalya 12.8 Plt Count 268 Neut % (Auto) 79.9 H Lymph % (Auto) 14.1 L [place] % (Auto) 5.5 Eos % (Auto) 0.2 Baso % (Auto) 0.1 Neut # (Auto) 10.50 H Lymph # (Auto) 1.90 [place] # (Auto) 0.70 Eos # (Auto) 0.00 Baso # (Auto) 0.00 INR Sodium 138 Potassium 3.9 Chloride 106 Carbon Dioxide 24 BUN 20 Creatinine 0.9 Estimated Creat Clear 60.02 Estimated GFR 94 Glucose 168 H Hemoglobin A1c Lactate 2.3 H Calcium 9.3 Total Bilirubin 1.7 H Direct Bilirubin 0.9 H AST 207 H ALT 106 H Alkaline Phosphatase 126 Lactate Baseline 1.5 Troponin I 0.11 H* 0.11 H* C-Reactive Protein 0.7 Total Protein 7.9 Albumin 4.5 Triglycerides Cholesterol LDL Cholesterol, Calc HDL Cholesterol Lipase 78080 H Procalcitonin SARS-CoV-2 (PCR) Negative SARS-CoV-2 02/01/23 02/01/23 06:47 13:51 WBC 14.83 H RBC 5.36 Hgb 16.2 Hct 47.4 MCV 88 MCH 30 MCHC 34 RDW Coeff of Natalya 13.3 Plt Count 235 Neut % (Auto) 91.9 H Lymph % (Auto) 3.4 L [place] % (Auto) 4.4 Eos % (Auto) 0.0 Baso % (Auto) 0.0 Neut # (Auto) 13.60 H Lymph # (Auto) 0.50 L [place] # (Auto) 0.70 Eos # (Auto) 0.00 Baso # (Auto) 0.00 INR 1.14 H Sodium 138 Potassium 3.8 Chloride 108 Carbon Dioxide 23 BUN 16 Creatinine 0.7 Estimated Creat Clear 60.02 Estimated GFR 101 Glucose 175 H Hemoglobin A1c 6.46 H Lactate Calcium 8.5 Total Bilirubin 1.0 Direct Bilirubin 0.3 AST 68 H ALT 83 H Alkaline Phosphatase 104 Lactate Baseline Troponin I 0.11 H* 0.10 H* C-Reactive Protein Total Protein 6.9 Albumin 3.9 Triglycerides 30 L Cholesterol 138 LDL Cholesterol, Calc 68 HDL Cholesterol 64 Lipase 2030 H Procalcitonin 0.45 SARS-CoV-2 (PCR)
--- NOTE | 2023-02-01 18:57 | PC.NURSE ---
Pt alert and oriented. Pt independent in room. Knitted Cloth Examiner used for explanation of assessment, pain, and general communication. The hospitalist had a conversation about ERCP tomorrow at [facility] with Pt this afternoon. Pt has had no complaints of pain during shift (15-17). Pt had no nausea or vomiting during shift. Pt is NPO.?
[2023-02-02] VITALS: PULSE 60
[2023-02-02] MEDS: LACTATED RINGERS 1000 ML 1,000 ML 250 ML IV ×3 (01:42→09:27)
[2023-02-02 03:00] VITALS: BP 175/83; PULSE 62; RESP 18; O2SAT 91
[2023-02-02 07:04] VITALS: PULSE 77
[2023-02-02 07:04] LABS: Hematocrit 44.9 % (37.0-53.0); Hemoglobin* 15.2 gm/dL (13.5-17.5); Immature Granulocytes Pct Auto 0.2 %; Lymphocytes Percent Auto 5.6 % (20-44); Mean Corpuscular HGB Conc 34 gm/dL (32-36); Mean Corpuscular Hemoglobin 30 pg (26-34); Mean Corpuscular Volume 89 fL (80-100); Monocytes Percent Auto 6.1 % (0.0-11.0); Neutrophils Percent Auto 88.1 % (42.0-72.0); Platelet Count* 215 K/uL (140-440); RDW Coefficient of Variation % 13.5 % (11.5-15.5); Red Blood Count 5.03 m/uL (4.30-5.90); White Blood Count* 16.18 K/uL (4.50-11.00)
[2023-02-02 07:12] LABS: Slide Review Reflex No
[2023-02-02 07:21] LABS: Albumin* 3.1 g/dL (3.3-5.0); Chloride* 102 mmol/L (96-114)
[2023-02-02 07:22] LABS: Potassium* 3.8 mmol/L (3.6-5.1); Sodium* 133 mmol/L (135-149)
[2023-02-02 07:24] LABS: Alkaline Phosphatase* 73 U/L (40-150); Aspartate Amino Transferase* 25 U/L (12-35); Bilirubin Direct* 0.2 mg/dL (0.0-0.5); Blood Urea Nitrogen* 15 mg/dL (7-30); Carbon Dioxide* 28 mmol/L (20-32); Creatinine* 0.6 mg/dL (0.5-1.5); Est. Creatinine Clearance* 60.02; Estimated Glomerular Filt Rate 106 ml/min; Glucose* 131 mg/dL (60-115); Total Protein* 6.2 g/dL (6.0-8.3)
[2023-02-02 07:25] LABS: Alanine Aminotransferase* 44 U/L (4-50); Calcium* 8.1 mg/dL (8.4-10.6)
[2023-02-02 07:59] VITALS: BP 154/82; PULSE 63; RESP 24; TEMP 36.8; O2SAT 91
[2023-02-02 11:00] VITALS: BP 161/83; PULSE 63; RESP 22; TEMP 36.8; O2SAT 92
--- NOTE | 2023-02-02 12:53 | P.IMPN_ITS ---
Progress Note: A&P Assessment and plan (1) Pancreatitis: Problem details: - [place]ase on admission 52274, trended down to 2000 on 02/01 - patient symptomatically improving Status: Acute (2) Choledocholithiasis: Problem details: - on MRCP 02/01 - reviewed with Dr. Carrillo of [facility]; patient will have an ERCP with him at [facility] 02/02 Status: Acute (3) Abnormal LFTs: Problem details: - noted on admission 01/31, trending downward Status: Acute (4) Hyperglycemia: Problem details: - A1C 6.5 Status: Acute (5) Elevated troponin: Problem details: - peak at 0.11, TTE 01/31 and reassuring per tech, formal Cardiology read pending Status: Acute Plan - ERCP today, final dispo pending results Subjective Date Seen: 02/02/23 Interval history: Stefan continues to feel better. LLQ has improved. He is tolerating NPO status, no chest pain or dyspnea. He has an ERCP with Dr. Carrillo at [facility] today. Exam Narrative: Exam Narrative: GEN: Alert and oriented, nontoxic in appearance HEENT: EOMIs bilaterally, no scleral icterus CV: RRR, soft systolic murmur without concerning features R: LCTA bilaterally without concerning wheezing, rales, or rhonchi Ab: Mild distension, tolerates palpation Ext: wwp, no concerning edema Skin: No concerning skin lesions or rashes on exposed skin Neuro: Nonfocal Psych: Appropriate Const: Vital Signs, click to edit/add: Vital Signs - 24 hr 02/01/23 15:40 02/01/23 16:31 02/01/23 20:30 Temperature 98.1 F Pulse Rate 67 Pulse Rate [Pulse Oximeter] 59 L 63 Respiratory Rate 18 16 Blood Pressure [Le ft Arm] 147/78 H 150/82 H Pulse Oximetry 93 92 Oxygen Delivery Me thod Room Air Oxygen Flow Rate 02/01/23 23:49 02/01/23 23:49 02/02/23 00:00 Temperature Pulse Rate 60 Pulse Rate [Pulse Oximeter] 63 65 Respiratory Rate 16 16 Blood Pressure [Le ft Arm] 154/81 H Pulse Oximetry 93 Oxygen Delivery Me thod Room Air Oxygen Flow Rate 1 02/02/23 03:00 02/02/23 07:59 02/02/23 07:04 Temperature 98.2 F Pulse Rate 77 Pulse Rate [Pulse Oximeter] 62 63 Respiratory Rate 18 24 Blood Pressure [Le ft Arm] 175/83 H 154/82 H Pulse Oximetry 91 91 Oxygen Delivery Me thod Room Air Room Air Oxygen Flow Rate 02/02/23 11:00 Temperature 98.2 F Pulse Rate Pulse Rate [Pulse Oximeter] 63 Respiratory Rate 22 Blood Pressure [Le ft Arm] 161/83 H Pulse Oximetry 92 Oxygen Delivery Me thod Room Air Oxygen Flow Rate Labs Labs: Laboratory Results - last 24 hr 02/01/23 02/02/23 13:51 06:54 WBC 16.18 H RBC 5.03 Hgb 15.2 Hct 44.9 MCV 89 MCH 30 MCHC 34 RDW Coeff of Natalya 13.5 Plt Count 215 Neut % (Auto) 88.1 H Lymph % (Auto) 5.6 L [place] % (Auto) 6.1 Eos % (Auto) 0.0 Baso % (Auto) 0.0 Neut # (Auto) 14.30 H Lymph # (Auto) 0.90 [place] # (Auto) 1.00 H Eos # (Auto) 0.00 Baso # (Auto) 0.00 Sodium 133 L Potassium 3.8 Chloride 102 Carbon Dioxide 28 BUN 15 Creatinine 0.6 Estimated Creat Clear 60.02 Estimated GFR 106 Glucose 131 H Calcium 8.1 L Total Bilirubin 1.0 Direct Bilirubin 0.2 AST 25 ALT 44 Alkaline Phosphatase 73 Troponin I 0.10 H* Total Protein 6.2 Albumin 3.1 L
[2023-02-02 12:55] VITALS: BP 166/54; PULSE 67; RESP 22; TEMP 36.4; O2SAT 92
--- NOTE | 2023-02-02 13:11 | PC.NURSE ---
Pt alert and oriented. Pt independent in room. Leisure Travel Agent used for explanation of assessment, pain, transportation to [facility] for procedure and general communication. The hospitalist had a conversation about ERCP today at [facility] with Pt this morning. Pt has had no complaints of pain during shift. Pt had no nausea or vomiting during shift. Pt is NPO. [facility] ambulance service left with Pt at 1306. Tentative plan for Pt to come back to [facility] after ERCP at [facility].? IV left in place for procedure.
== END 2023-02-02 13:06 | disposition short-term general hospital (02) | DRG 439 ==
LOC: ED 21:57 → MEDSURG 22:06
PROVIDERS: Family Medicine; Admitting Provider Hospitalist; Emergency Provider Family Medicine; Visit Provider Hospitalist
DX: K85.10 Biliary acute pancreatitis without necrosis or infection (principal); E87.20 Acidosis, unspecified; I24.8 Other forms of acute ischemic heart disease; D17.5 Benign lipomatous neoplasm of intra-abdominal organs; D72.829 Elevated white blood cell count, unspecified; R94.5 Abnormal results of liver function studies
CPT/HCPCS: 36415; 74177; 74181; 76705; 80048; 80053; 80061; 80076; 82150; 82248; 82330; 82803; 82977; 83036; 83605; 83690; 83735; 84145; 84443; 84484; 85025; 85610; 86140; 87635; 93005; 93308; 93321; 93325; 94761; 99284; 99285; T1013; A9270; C9113; J0696; J1170; J2270; J2405; J7030; J7120; Q9967

== ENCOUNTER 2023-02-02 19:29 | Inpatient (IN) | payer OTHER, SELFPAY ==
[2023-02-02 19:35] VITALS: BP 147/83; PULSE 60; RESP 18; TEMP 36.7; O2SAT 92
--- NOTE | 2023-02-02 20:29 | PC.NURSE ---
Pt return from ERCP at [place] at 1927, see previous admission entries.
--- NOTE | 2023-02-02 21:18 | P.IMHP_ITS ---
Hospitalist- H&P: HPI History of Present Illness Date Seen: 02/02/23 Chief complaint: direct admit Narrative: Addendum H&P -patient was discharged this morning, however the discharge was not to home. He was discharged in order to be presented to the endoscopy suite up at [facility]. He was transferred by nonemergent EMS for this planned procedure. He was diagnosed with choledocholithiasis and was in need of a semi urgent ERCP. Dr. Carrillo accepted him for ?the day trip with plans to return him after the procedure. -the procedure was uneventful. The ERCP was able to clear sludge and debris from the common bile duct. Patient tolerated the procedure well and had an uneventful return back to our hospital. -the plan going forward is to observe him tonight, advanced his diet, follow his labs. Presuming that he feels better and is able to discharge home he can then pursue a outpatient laparoscopic cholecystectomy and a tertiary care center. Our general surgeons have deferred the case secondary to his adrenal mass. Exam: Unchanged Progress Note: A&P Assessment and plan (1) Pancreatitis: ?Problem details: ?- lipase on admission [address], trended down to 2000 on 02/01 ?- patient symptomatically improving ?Status:?Acute (2) Choledocholithiasis: ?Problem details: ?- on MRCP 02/01 ?- reviewed with Dr. Carrillo of [facility]; patient completed ERCP today 02/02/2023. ?Status:?Acute (3) Abnormal LFTs: ?Problem details: ?- noted on admission 01/31, trending downward ?Status:?Acute (4) Hyperglycemia: ?Problem details: ?- A1C 6.5 ?Status:?Acute (5) Elevated troponin: ?Problem details: ?- peak at 0.11, TTE 01/31 and reassuring per tech, formal Cardiology read pending ?Status:?Acute Plan ?- ERCP completed. Advanced diet as tolerated starting with clear liquids. Possible discharge in the morning. [facility] Social History Smoking Status: Never smoker How often do you have a drink containing alcohol: never AUDIT-C Alcohol total score: 0 Non-prescribed substance use: denies use Meds Home Medications and Allergies Home Medications Medication Instructions Recorded Confirmed Type No Known Home Medications 01/31/23 01/31/23 History Allergies Allergy/AdvReac Type Severity Reaction Status Date / Time No Known Drug Allergies Allergy Verified 01/31/23 19:14 Exam Const: Vital Signs, click to edit/add: Vital Signs - 24 hr 02/02/23 19:35 02/02/23 19:35 Temperature 98.0 F Pulse Rate [Pulse Oximeter] 60 Respiratory Rate 18 Blood Pressure [Le ft Arm] 147/83 H Pulse Oximetry 92 92 Oxygen Delivery Me thod Room Air Room Air Assessment and Plan Assessment and plan (1) Choledocholithiasis: Problem comment: - on MRCP 02/01 - reviewed with Dr. Carrillo of [facility]; ERCP completed at [facility] . Sludge and debris cleared from the common bile duct. Status: Acute (2) Non-Kinyarwanda speaking patient: Status: Acute (3) Elevated troponin: Problem comment: - peak at 0.11, TTE 01/31 and reassuring per tech, formal Cardiology read pending Status: Acute (4) Hyperglycemia: Problem comment: - A1C 6.5 Status: Acute (5) Abnormal LFTs: Problem comment: - noted on admission 01/31, trending downward Status: Acute (6) Pancreatitis: Problem comment: - lipase on admission [id number], trended down to 2000 on 02/01 - patient symptomatically improving Status: Acute
[2023-02-02] MEDS: SODIUM CHLORIDE 0.9 % (FLUSH) 10 ML SYRINGE 5 ML IVF (21:55)
[2023-02-02 23:00] VITALS: BP 128/72; PULSE 64; RESP 18; TEMP 36.7; O2SAT 92
[2023-02-02] MEDS: 0.9 % SODIUM CHLORIDE 1000 ml 1,000 ML 125 ML IV (23:44)
[2023-02-03 02:52] VITALS: PULSE 60; RESP 18; O2SAT 88
--- NOTE | 2023-02-03 05:50 | PC.NURSE ---
Pt slept well during shift, denies pain, No N/V and tolerating clear liquid diet. 1 LPM O2 placed while sleeping to maintain sats >90%. Pt ind in room, tolerating activity well. I-pad tank car mechanic used.
[2023-02-03] MEDS: 0.9 % SODIUM CHLORIDE 1000 ml 1,000 ML 125 ML IV (06:42)
[2023-02-03] MEDS: OMEPRAZOLE 20 MG CAPSULE DR 40 MG PO (06:45)
[2023-02-03 07:13] LABS: HCO3 VBG 28 mmol/L (21-28); Ionized Calcium* 1.15 mmol/L (1.11-1.30); Lactate* 1.5 mmol/L (0.5-1.9); PCO2 VBG 44 mmHG (40-50); PO2 VBG 37.7 mmHG (25-47); pH VBG 7.411 (7.32-7.43)
[2023-02-03 07:16] LABS: Basophils Percent Auto 0.1 % (0.0-3.0); Hematocrit 38.6 % (37.0-53.0); Hemoglobin* 13.2 gm/dL (13.5-17.5); Immature Granulocytes Pct Auto 0.2 %; Lymphocytes Percent Auto 4.6 % (20-44); Mean Corpuscular HGB Conc 34 gm/dL (32-36); Mean Corpuscular Hemoglobin 30 pg (26-34); Mean Corpuscular Volume 89 fL (80-100); Monocytes Percent Auto 6.5 % (0.0-11.0); Neutrophils Percent Auto 88.6 % (42.0-72.0); Platelet Count* 208 K/uL (140-440); RDW Coefficient of Variation % 13.1 % (11.5-15.5); Red Blood Count 4.36 m/uL (4.30-5.90); White Blood Count* 14.66 K/uL (4.50-11.00)
[2023-02-03 07:27] LABS: Slide Review Reflex No
[2023-02-03 07:33] LABS: Albumin* 2.9 g/dL (3.3-5.0); Chloride* 104 mmol/L (96-114); Sodium* 134 mmol/L (135-149)
[2023-02-03 07:34] LABS: Potassium* 3.7 mmol/L (3.6-5.1)
[2023-02-03 07:36] LABS: Amylase* 84 U/L (18-89); Carbon Dioxide* 26 mmol/L (20-32); Creatinine* 0.6 mg/dL (0.5-1.5); Estimated Glomerular Filt Rate 106 ml/min
[2023-02-03 07:37] LABS: Alanine Aminotransferase* 34 U/L (4-50); Alkaline Phosphatase* 62 U/L (40-150); Aspartate Amino Transferase* 21 U/L (12-35); Bilirubin Total* 0.7 mg/dL (0.1-1.5); Blood Urea Nitrogen* 13 mg/dL (7-30); Calcium* 7.9 mg/dL (8.4-10.6); Gamma Glutamyl Transpeptidase* 154 U/L (8-55); Glucose* 124 mg/dL (60-115); Lipase* 157 U/L (23-300); Magnesium* 2.4 mg/dL (1.5-2.6); Total Protein* 5.9 g/dL (6.0-8.3)
[2023-02-03 07:49] LABS: INR 1.13 (0.91-1.10); Prothrombin Time 15.2 Seconds
[2023-02-03 07:53] LABS: Procalcitonin* 0.37 ng/mL (<0.50)
[2023-02-03 07:55] LABS: C Reactive Protein* 22.2 mg/dL (0.5-1.0)
[2023-02-03 07:59] VITALS: BP 141/80; PULSE 61; RESP 16; TEMP 36.4; O2SAT 93
[2023-02-03 08:58] VITALS: BP 139/77; BP 141/80; BP 146/74; PULSE 59; PULSE 61
--- NOTE | 2023-02-03 10:11 | PM.DS1 ---
DS: Providers Provider Date Seen: 02/03/23 Date of admission: 02/02/23 19:29 Primary care physician: Not a Local Provider Admitting Clinician: Karoline Parr MD Attending Physician on discharge: Karoline Parr MD DS: Diagnosis Discharge Diagnosis (1) Pancreatitis: Status: Acute Problem details: - lipase on admission 80394, trended down to 2000 on 02/01 - patient symptomatically improving (2) Choledocholithiasis: Status: Acute Problem details: Completed ERCP/Dr. Carrillo at [facility] 02/02. Sphincterotomy with sludge and debris cleared from the common bile duct. 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 Diagnosed on admission in January of 2023. (4) Elevated troponin: Status: Acute Problem details: - peak at 0.11, TTE 01/31 and reassuring per tech, formal Cardiology read pending (5) Hyperglycemia: Status: Acute Problem details: - A1C 6.5 (6) Non-Montserratian speaking patient: Status: Acute DS: Summary Hospital Course Hospital Course: HOSPITALIST DISCHARGE SUMMARY ATTENDING PHYSICIAN: Karoline Parr MD FINAL DIAGNOSIS: Gallstone pancreatitis Choledocholithiasis Status post ERCP Adrenal mass HOSPITAL FOLLOWUP ISSUES: 1. General surgery. Patient had a successful ERCP. While we do not do this procedure at [place], this was arranged through [facility] at [facility]. On the morning of 02/02/2023 he was taken by non emergent EMS up to [place], had a successful ERCP which included a sphincterotomy and sludge removal from the common bile duct. He returned the same day by non emergent EMS to our med surge unit. Secondary to his large adrenal mass that is attached to his liver, our general surgeons are recommending tertiary care evaluation for his recommended cholecystectomy. This can be done as an outpatient. REFERRALS WHILE ADMITTED: General surgery REFERRALS AFTER DISCHARGE: General surgery BRIEF HOSPITAL COURSE: Stefan is a 67-year-old male who presented with acute abdominal pain. He was diagnosed with gallstone pancreatitis. He was also noted to have choledocholithiasis. In addition, we found a large right, fat containing, adrenal mass measuring 6.5 cm that has invaded the right side of the liver. We pursued an ERCP with [place]. This was successful both in eliminating his pain, and coming down his LFTs and elevated lipase. His initial lipase was over 20,000, this was normal by discharge. His LFTs and bilirubin were also elevated which have normalized before discharge. Tolerating a normal diet on the day of discharge. Further workup for a cholecystectomy and management of this adrenal mass can be done as an outpatient. His only medication at discharge was omeprazole. SUBSTANTIVE NOTATIONS ON IMAGING, LAB, MICROBIOLOGY/PATHOLOGY STUDIES: Mildly elevated white blood cell count was down trending at discharge but persistent Venous blood gas on day of discharge was normal. PH was 7.4 Renal function and electrolytes were all normal at discharge. Total bili was normal. AST and ALT were normal. Alk-phos was normal. Amylase and lipase were normal His CRP had bumped to 22.2 but this is likely related to his procedure yesterday. His procalcitonin was normal/reassuring. MRCP 02/01/2023 1. Diffuse peripancreatic edema, compatible with acute pancreatitis. No organized fluid collection. 2. Few punctate filling defects within the common bile duct, compatible with choledocholithiasis. No significant biliary duct dilation. 3. Cholelithiasis. Mild diffuse hepatic steatosis. 4. Large heterogeneous predominantly fat containing right adrenal mass measuring up to 6.5 cm, which appears to have invaded into the right lobe of the liver. ERCP (DR. CARRILLO - [facility] - SENT FROM [place] TO [place] AND RETURNED SAME DAY) Findings: The scope was passed under direct vision through the upper GI tract. The entire examined stomach was normal. The examined duodenum was normal. The major papilla was normal. The bile duct was deeply cannulated with the short-nosed traction sphincterotome and guidewire. Contrast was injected. I personally interpreted the bile duct images. There was brisk flow of contrast through the ducts. Image quality was adequate. Contrast extended to the hepatic ducts. The lower third of the main bile duct contained filling defect(s) thought to be sludge. Biliary sphincterotomy was made with a traction (standard) sphincterotome. There was no post-sphincterotomy bleeding. The biliary tree was swept with a 9 mm balloon starting at the bifurcation. Sludge was swept from the duct. Impressions/Post-Op Diagnosis: - The examination was suspicious for sludge. - A biliary sphincterotomy was performed. - The biliary tree was swept and sludge was found. Echocardiogram -normal LV function and size. Mild AI. DISCHARGE MEDICATIONS: See Reconciled list - SIGNIFICANT CHANGES: The patient did not have any home medications at admission, he is being discharged on 20 mg of p.o. a map result daily. REVIEW OF SYSTEMS No new chest pain or dyspnea Pain controlled No voiding difficulties Tolerating diet challenge PHYSICAL EXAM: CONSTITUTIONAL: Alert, oriented. No acute distress. VITAL SIGNS: 146/74. Pulse 61. Respiratory 18. Afebrile. On room air satting 90%. HEENT: Normocephalic, atraumatic. PERRL, EOMI, conjunctivae pink, no scleral icterus. Ears and nose externally normal. Pharynx normal. NECK: No JVD. No carotid bruit, no thyromegaly, no adenopathy. CHEST: Clear to auscultation bilaterally. HEART: S1 and S2 normal. Edema ABDOMEN: Soft, nontender. Normal bowel sounds. MUSCULOSKELETAL: No gross joint deformity or swelling. NEURO: Cranial nerves intact. Grossly intact. No asymmetric findings. SKIN: No rashes, petechiae, concerning changes PSYCHIATRIC: Mood euthymic. DISPOSITION: Home General surgery follow-up next week patient prefers [facility], [facility]. Time spent on discharge 37 minutes. Time Spent with Patient Time attestation: Total time spent providing and/or coordinating discharge services: Exam Const: Vital Signs, click to edit/add: Vital Signs - 24 hr 02/02/23 19:35 02/02/23 19:35 02/02/23 23:00 Temperature 98.0 F 98.1 F Pulse Rate [Pulse Oximeter] 60 64 Pulse Rate [orthos tatic lying Left P ulse Oximeter] Pulse Rate [orthos tatic sitting Left Pulse Oximeter] Pulse Rate [orthos tatic standing Lef t Pulse Oximeter] Respiratory Rate 18 18 Blood Pressure [Le ft Arm] 147/83 H 128/72 Blood Pressure [or thostatic lying Le ft Arm] Blood Pressure [or thostatic sitting] Blood Pressure [or thostatic standing Left Arm] Pulse Oximetry 92 92 92 Oxygen Delivery Me thod Room Air Room Air Room Air 02/03/23 02:52 02/03/23 08:58 Temperature Pulse Rate [Pulse Oximeter] 60 Pulse Rate [orthos tatic lying Left P ulse Oximeter] 61 Pulse Rate [orthos tatic sitting Left Pulse Oximeter] 59 L Pulse Rate [orthos tatic standing Lef t Pulse Oximeter] 61 Respiratory Rate 18 Blood Pressure [Le ft Arm] Blood Pressure [or thostatic lying Le ft Arm] 141/80 H Blood Pressure [or thostatic sitting] 139/77 Blood Pressure [or thostatic standing Left Arm] 146/74 H Pulse Oximetry 88 Oxygen Delivery Me thod Room Air DS: Data Data Completed and Pending Labs on day of discharge: Labs from last 24 hours 02/03/23 07:05 WBC 14.66 H RBC 4.36 Hgb 13.2 L Hct 38.6 MCV 89 MCH 30 MCHC 34 RDW Coeff of Natalya 13.1 Plt Count 208 Neut % (Auto) 88.6 H Lymph % (Auto) 4.6 L [place] % (Auto) 6.5 Eos % (Auto) 0.0 Baso % (Auto) 0.1 Neut # (Auto) 13.00 H Lymph # (Auto) 0.70 L [place] # (Auto) 1.00 H Eos # (Auto) 0.00 Baso # (Auto) 0.00 INR 1.13 H VBG pH 7.411 VBG pCO2 44 VBG pO2 37.7 VBG HCO3 28 Sodium 134 L Potassium 3.7 Chloride 104 Carbon Dioxide 26 BUN 13 Creatinine 0.6 Estimated GFR 106 Glucose 124 H Lactate 1.5 Calcium 7.9 L Ionized Calcium Remi 1.15 Magnesium 2.4 Total Bilirubin 0.7 GGT 154 H AST 21 ALT 34 Alkaline Phosphatase 62 C-Reactive Protein 22.2 H Total Protein 5.9 L Albumin 2.9 L Amylase 84 Lipase 157 Procalcitonin 0.37 TSH 2.500 Discharge Plan Discharge Disposition: Home w/ Parent or Adult Date of Admission: 02/02/23 19:29 Attending Provider on Discharge: Karoline Parr Primary Care Provider: Provider,Not a Local Anticipated Discharge Date/Time: 02/03/23 10:04 Discharge Medications: New omeprazole 20 mg capsule,delayed release(DR/EC) 20 mg PO DAILY Qty: 30 2RF No Action No Known Home Medications Discharge Orders: Discharge Order (Routine); Ordered 02/03/23 Ordered By: Karoline Parr Activity Detail: Will have you see general surgery with [facility] Keep diet light; non-greasy/spicy. No alcohol. If pain returns, please go to an ED at a larger hospital so your gallbladder can be removed. Our surgeons do not want to do your surgery here given your tumor on the adrenal gland making this procedure higher risk. Follow Up Appointments: Chilango Ocasio [Other] (Consult cholecystectomy with known adrenal mass - recent ERCP. patient would like to establish care. [facility] Records needed [id number] [place] [address] Appointments:[phone]) Provider,Not a Local [Primary Care Provider] - Forms: [employer] Info Instructions
[2023-02-03 11:00] VITALS: BP 127/71; PULSE 69; RESP 18; TEMP 36.6; O2SAT 90
[2023-02-03 15:50] VITALS: BP 137/81; PULSE 78; RESP 18; TEMP 36.9; O2SAT 92
--- NOTE | 2023-02-03 15:57 | PC.NURSE ---
Pt alert and oriented. Pt independent in room. Territory Manager General Sales used for explanation of assessment, pain, discharge instructions and general communication. Pt has had no complaints of pain during shift. Pt had no nausea or vomiting during shift. Pt on a regular diet and tolerated well. Pt to discharge home accompanied by friend at 1600. Follow up appointments made at [facility] in [place]. Pt asked for note for work, completed and signed my hospitalist.?
--- NOTE | 2023-02-03 18:10 | PC.NURSE ---
Pt's ride arrive at 1800. Pt discharged at 1805.
== END 2023-02-03 18:05 | disposition home or self-care (01) | DRG 440 ==
PROVIDERS: Admitting Provider Family Medicine; Visit Provider Family Medicine
DX: K85.10 Biliary acute pancreatitis without necrosis or infection (principal); K80.50 Calculus of bile duct without cholangitis or cholecystitis without obstruction; R94.5 Abnormal results of liver function studies; R73.9 Hyperglycemia, unspecified; D35.01 Benign neoplasm of right adrenal gland
CPT/HCPCS: 36415; 80053; 82150; 82330; 82803; 82977; 83605; 83690; 83735; 84145; 84443; 85025; 85610; 86140; T1013; A9270; J7030

== ENCOUNTER 2024-02-13 06:58 | Day surgery (SDC) | payer OTHER, SELFPAY ==
[2024-02-13] VITALS (28 sets, daily range): BP systolic 113–169; BP diastolic 65–88; PULSE 51–92; RESP 12–20; TEMP 36–37.7; O2SAT 90–99; BMI 24.9
--- NOTE | 2024-02-13 07:52 | CT_ITS ---
Patient: BRYAN KERR Facility:?[facility] RIS Patient ID:?[id number] Site Patient ID:?[id number]. Site :?[id number] Study:?CT-Abdomen/Pelvis 71CC ISOVUE 370-02/13/2024 9:23:31 AM Ordering Physician:?DR. MASTERS Final Report: INDICATION: Abdominal pain. Vomiting. Fever and chills. COMPARISON: 01/31/2023 TECHNIQUE: CT of the abdomen and pelvis with 71 cc of Isovue 370 intravenous contrast. Please note that all CT scans at this facility use dose modulation, iterative reconstruction, and/or weight-based dosing when appropriate to reduce radiation dose to as low as reasonably achievable. FINDINGS: ABDOMEN Liver: Normal hepatic attenuation. Intrahepatic extension of the macroscopic fat containing right adrenal mass described below. Otherwise no suspicious focal hepatic lesion. No intrahepatic biliary ductal dilatation. Patent portal vein. The hepatic veins are not yet opacified due to timing of imaging relative to contrast bolus administration on this early portal venous phase study. Gallbladder: Clustered dependent hyperdense subcentimeter foci in the gallbladder lumen (2; 52) consistent with cholelithiasis. Phrygian cap. Normal common duct caliber. No pericholecystic inflammatory changes. Pancreas: Normal pancreatic attenuation. No focal lesion. Normal duct caliber. No peripancreatic inflammatory changes. Spleen: Normal splenic attenuation. No suspicious focal lesion. Patent splenic artery and vein. Adrenal Glands: Chronic macroscopic fat containing right adrenal lesion measuring 5.4 x 6.0 x 7.2 cm (series 2; image 48 and 4; 84), compared to 5.2 x 5.8 x 6.9 cm on the prior study of 01/31/2023 (my measurements on 2; 52 and 4; 83). Note is again made of extension of this lesion into the right hepatic lobe at the junction between segments 6 and 7 (4; 86, for example). Unremarkable left adrenal gland. Kidneys: Normal bilateral renal attenuation. Stable 11 mm interpolar left renal cortical cyst. Stable too small to characterize round circumscribed homogeneous low-density finding in the medial aspect of the right lower pole renal cortex consistent with a Bosniak II benign renal cortical cysts. No suspicious focal lesion. No obstructing nephrolith or dilatation of the intrarenal collecting systems. Patent renal arteries and veins. Nondilated upper urinary tracts. Gastrointestinal tract: Normal caliber, attenuation and wall thickness of the gastrointestinal tract. Nonspecific moderate colonic fecal loading. No evidence of stercoral colitis. Sigmoid diverticulosis without associated inflammatory changes. Normal appendix. Vascular: Abdominal aorta and its major proximal branches including the celiac, superior mesenteric, inferior mesenteric, renal, and bilateral common iliac arteries are patent. Inferior vena cava, portal and superior mesenteric veins are patent. Additional findings: No incidental adenopathy. No significant ascites, free fluid or pneumoperitoneum. PELVIS No bladder lesion is identified. Mild prostatomegaly. The prostate measures 39 mL. No abnormal free fluid. No incidental adenopathy. SKELETON AND BODY WALL No acute or suspicious incidental findings. LOWER THORAX Partially included lower thoracic wall, lungs, pleural spaces and mediastinum are otherwise without significant incidental findings. IMPRESSION: 1. No acute imaging findings to explain the history of abdominal pain, vomiting, fever, and chills. 2. No significant interval enlargement of a macroscopic fat containing right adrenal lesion with apparent extension into the posterior right hepatic lobe. 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 Apparent intrahepatic extension is atypical, however. Again, subspecialty surgical referral is recommended for consideration of excision, if clinically appropriate. 3. Incidental findings described above. Please note that all CT scans at this facility use dose modulation, iterative reconstruction, and/or weight-based dosing when appropriate to reduce radiation dose to as low as reasonably achievable. Dictated by Aodlfo Benz MD @ 02/13/2024 9:51:19 AM Signed by:?Adolfo Benz MD @02/13/2024 9:51:19 AM (Electronic Signature)
--- NOTE | 2024-02-13 07:54 | ED.ABDPAIN ---
HPI - Abdominal Pain General Date Seen: 02/13/24 <Abdirahman Sánchez MD - Last Filed: 02/15/24 08:37> Chief Complaint: Abdominal Pain <Abdirahman Sánchez MD - Last Filed: 02/15/24 08:37> Stated Complaint: stomach pain <Abdirahman Sánchez MD - Last Filed: 02/15/24 08:37> Time Seen by Provider: 02/13/24 07:52 <Abdirahman Sánchez MD - Last Filed: 02/15/24 08:37> Source: patient <Abdirahman Sánchez MD - Last Filed: 02/15/24 08:37> Mode of arrival: ambulatory <Abdirahman Sánchez MD - Last Filed: 02/15/24 08:37> Limitations: no limitations and language barrier <Abdirahman Sánchez MD - Last Filed: 02/15/24 08:37> History of Present Illness HPI narrative: male comes to ed with concerns of upper abd pain. last food was at 2030. did have guacamole at 1200 and feels this may have caused part of the problem as he started with mild pain after ingesting . did vomit this am. was able to drive self to the ed. feels that this is his gallbladder as he has had this in the past. Patient is seen with our social work professor bryanna copeland, he describes pain since approximately 10:00 p.m. last night, describes in the right upper quadrant, no radiation, associated with nausea he did vomit once this morning there is no blood in the vomit, he did eat some food yesterday. Reports that this is similar to previous gallbladder pain that he had. Denies any chest pain shortness of breath, darkening of his urine or lightening of his stools. Just recently returned from [place] month ago, did see his surgeon in [facility] after he was hospitalized here. But he was feeling better never did get his gallbladder taken out. He does tell me that he had a history of a mass, also I believe it was on his adrenal gland. Surgeons did not want to do surgery here in [place]. He did undergo an ERCP here on his last admission. Denies use of alcohol drugs non smoker. Did not take any medication for the improvement. <Abdirahman Sánchez MD - Last Filed: 02/15/24 08:37> male comes to ed with concerns of upper abd pain. last food was at 2030. did have guacamole at 1200 and feels this may have caused part of the problem as he started with mild pain after ingesting . did vomit this am. was able to drive self to the ed. feels that this is his gallbladder as he has had this in the past. Patient is seen with our social work professor bryanna copeland, he describes pain since approximately 10:00 p.m. last night, describes in the right upper quadrant, no radiation, associated with nausea he did vomit once this morning there is no blood in the vomit, he did eat some food yesterday. Reports that this is similar to previous gallbladder pain that he had. Denies any chest pain shortness of breath, darkening of his urine or lightening of his stools. Just recently returned from [place] month ago, did see his surgeon in [facility] after he was hospitalized here. But he was feeling better never did get his gallbladder taken out. He does tell me that he had a history of a mass, also I believe it was on his adrenal gland. Surgeons did not want to do surgery here in [place]. He did undergo an ERCP here on his last admission. Denies use of alcohol drugs non smoker. Did not take any medication for the improvement. Addendum here from last hospitalization at this facility 1 year ago Discharge Diagnosis (1) Pancreatitis: Status: Acute Problem details: - lipase on admission 79284, trended down to 2000 on 02/01 - patient symptomatically improving (2) Choledocholithiasis: Status: Acute Problem details: Completed ERCP/Dr. Carrillo at [facility] 02/02. Sphincterotomy with sludge and debris cleared from the common bile duct. 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 Diagnosed on admission in January of 2023. (4) Elevated troponin: Status: Acute Problem details: - peak at 0.11, TTE 01/31 and reassuring per tech, formal Cardiology read pending (5) Hyperglycemia: Status: Acute Problem details: - A1C 6.5 (6) Non-Telugu speaking patient: Status: Acute DS: Summary Hospital Course Hospital Course: HOSPITALIST DISCHARGE SUMMARY ATTENDING PHYSICIAN: Karoline Parr MD FINAL DIAGNOSIS: Gallstone pancreatitis Choledocholithiasis Status post ERCP Adrenal mass HOSPITAL FOLLOWUP ISSUES: 1. General surgery. Patient had a successful ERCP. While we do not do this procedure at [place], this was arranged through [facility] at [facility]. On the morning of 02/02/2023 he was taken by non emergent EMS up to [place], had a successful ERCP which included a sphincterotomy and sludge removal from the common bile duct. He returned the same day by non emergent EMS to our [facility] surge unit. Secondary to his large adrenal mass that is attached to his liver, our general surgeons are recommending tertiary care evaluation for his recommended cholecystectomy. This can be done as an outpatient. REFERRALS WHILE ADMITTED: General surgery REFERRALS AFTER DISCHARGE: General surgery BRIEF HOSPITAL COURSE: Stefan is a 67-year-old male who presented with acute abdominal pain. He was diagnosed with gallstone pancreatitis. He was also noted to have choledocholithiasis. In addition, we found a large right, fat containing, adrenal mass measuring 6.5 cm that has invaded the right side of the liver. We pursued an ERCP with [place]. This was successful both in eliminating his pain, and coming down his LFTs and elevated lipase. His initial lipase was over 20,000, this was normal by discharge. His LFTs and bilirubin were also elevated which have normalized before discharge. Tolerating a normal diet on the day of discharge. Further workup for a cholecystectomy and management of this adrenal mass can be done as an outpatient. His only medication at discharge was omeprazole. <Luly Sarabia MD - Last Filed: 02/13/24 13:12> Related Data Home Medications: Previous Rx's Medication Instructions Recorded omeprazole 20 mg capsule,delayed 20 mg PO DAILY #30 caps 02/03/23 release hydrocodone 5 mg-acetaminophen 325 1 tab PO Q6H PRN pain #15 tabs 02/13/24 mg tablet sennosides 8.6 mg capsule (senna) 8.6 mg PO DAILY PRN constipation 02/13/24 #90 caps <Abdirahman Sánchez MD - Last Filed: 02/15/24 08:37> Allergies/Adverse Reactions: Allergies Allergy/AdvReac Type Severity Reaction Status Date / Time No Known Drug Allergies Allergy Verified 02/13/24 09:28 <Abdirahman Sánchez MD - Last Filed: 02/15/24 08:37> Review of Systems Status of ROS Reports: 10 or more systems reviewed and unremarkable except as noted in History and below <Abdirahman Sánchez MD - Last Filed: 02/15/24 08:37> [facility] Social History: Social History Smoking Status: Never smoker Do you use any of these nicotine containing products: None Second hand tobacco smoke exposure: No How often do you have a drink containing alcohol: never How often do you have six or more drinks on one occasion: Never AUDIT-C Alcohol total score: 0 Non-prescribed substance use: denies use service: No <Abdirahman Sánchez MD - Last Filed: 02/15/24 08:37> Exam Narrative: Exam Narrative: Patient is seen in room 2, with the social work professor, his eyes are closed, he seemed like he was sleeping, I think he just very stoic. Pupils equal round reactive to light, there is some arcus senilis bilaterally, but no icterus noted oropharynx is otherwise normal with a good hydration status is neck is supple his chest is clear bilaterally with easy respirations is heart sounds are normal his abdomen shows tenderness in the right upper quadrant on minimal palpation, there is no peritoneal signs, he has bowel sounds, there is no organomegaly. A positive Reardon sign is noted. No CVA tenderness is noted, he moves all extremities independently and well. <Abdirahman Sánchez MD - Last Filed: 02/15/24 08:37> Const: Vital Signs, click to edit/add: Vital Signs - 24 hr 02/13/24 07:06 02/13/24 08:35 02/13/24 08:45 Temperature 96.8 F L Pulse Rate 55 L 55 L Pulse Rate [Pulse Oximeter] 59 L Respiratory Rate 20 Blood Pressure Blood Pressure [Ri ght Upper Arm] 169/85 H Pulse Oximetry 96 96 96 Oxygen Delivery Me thod Room Air 02/13/24 09:00 02/13/24 09:16 02/13/24 09:30 Temperature Pulse Rate 54 L 60 58 L Pulse Rate [Pulse Oximeter] Respiratory Rate Blood Pressure 127/88 Blood Pressure [Ri ght Upper Arm] Pulse Oximetry 96 99 97 Oxygen Delivery Me thod 02/13/24 09:49 02/13/24 10:00 02/13/24 10:15 Temperature Pulse Rate 54 L 55 L 51 L Pulse Rate [Pulse Oximeter] Respiratory Rate Blood Pressure Blood Pressure [Ri ght Upper Arm] Pulse Oximetry 97 96 97 Oxygen Delivery Me thod 02/13/24 10:30 02/13/24 10:45 02/13/24 11:00 Temperature Pulse Rate 53 L 54 L 52 L Pulse Rate [Pulse Oximeter] Respiratory Rate Blood Pressure Blood Pressure [Ri ght Upper Arm] Pulse Oximetry 96 96 97 Oxygen Delivery Me thod 02/13/24 11:15 02/13/24 11:30 02/13/24 11:45 Temperature Pulse Rate 54 L 68 55 L Pulse Rate [Pulse Oximeter] Respiratory Rate Blood Pressure Blood Pressure [Ri ght Upper Arm] Pulse Oximetry 96 96 96 Oxygen Delivery Me thod 02/13/24 12:00 02/13/24 12:01 Temperature Pulse Rate 57 L 55 L Pulse Rate [Pulse Oximeter] Respiratory Rate Blood Pressure 159/81 H Blood Pressure [Ri ght Upper Arm] Pulse Oximetry 96 97 Oxygen Delivery Me thod <Abdirahman Sánchez MD - Last Filed: 02/15/24 08:37> Vital Signs, click to edit/add: Vital Signs - 24 hr 02/13/24 07:06 02/13/24 08:35 02/13/24 08:45 Temperature 96.8 F L Pulse Rate 55 L 55 L Pulse Rate [Pulse Oximeter] 59 L Respiratory Rate 20 Blood Pressure Blood Pressure [Ri ght Upper Arm] 169/85 H Pulse Oximetry 96 96 96 Oxygen Delivery Me thod Room Air 02/13/24 09:00 02/13/24 09:16 02/13/24 09:30 Temperature Pulse Rate 54 L 60 58 L Pulse Rate [Pulse Oximeter] Respiratory Rate Blood Pressure 127/88 Blood Pressure [Ri ght Upper Arm] Pulse Oximetry 96 99 97 Oxygen Delivery Me thod 02/13/24 09:49 02/13/24 10:00 02/13/24 10:15 Temperature Pulse Rate 54 L 55 L 51 L Pulse Rate [Pulse Oximeter] Respiratory Rate Blood Pressure Blood Pressure [Ri ght Upper Arm] Pulse Oximetry 97 96 97 Oxygen Delivery Me thod 02/13/24 10:30 02/13/24 10:45 02/13/24 11:00 Temperature Pulse Rate 53 L 54 L 52 L Pulse Rate [Pulse Oximeter] Respiratory Rate Blood Pressure Blood Pressure [Ri ght Upper Arm] Pulse Oximetry 96 96 97 Oxygen Delivery Me thod 02/13/24 11:15 02/13/24 11:30 02/13/24 11:45 Temperature Pulse Rate 54 L 68 55 L Pulse Rate [Pulse Oximeter] Respiratory Rate Blood Pressure Blood Pressure [Ri ght Upper Arm] Pulse Oximetry 96 96 96 Oxygen Delivery Me thod 02/13/24 12:00 02/13/24 12:01 Temperature Pulse Rate 57 L 55 L Pulse Rate [Pulse Oximeter] Respiratory Rate Blood Pressure 159/81 H Blood Pressure [Ri ght Upper Arm] Pulse Oximetry 96 97 Oxygen Delivery Me thod <Luly Sarabia MD - Last Filed: 02/13/24 13:12> Documenting provider has reviewed patient's vital signs: yes <Abdirahman Sánchez MD - Last Filed: 02/15/24 08:37> Course Vital Signs Vital signs: Initial Vital Signs Temperature 96.8 F L 02/13/24 07:06 Temperature Source Temporal Artery Scan 02/13/24 07:06 Pulse Rate 59 L 02/13/24 07:06 Pulse Rhythm Regular 02/13/24 07:06 Respiratory Rate 20 02/13/24 07:06 Blood Pressure 169/85 H 02/13/24 07:06 Blood Pressure Mean 113 H 02/13/24 07:06 Blood Pressure Position Supine 02/13/24 07:06 Pulse Oximetry 96 02/13/24 07:06 Oxygen Delivery Method Room Air 02/13/24 07:06 Vital Signs Temperature 96.8 F L 02/13/24 07:06 Pulse Rate 59 L 02/13/24 07:06 Respiratory Rate 20 02/13/24 07:06 Blood Pressure 169/85 H 02/13/24 07:06 Pulse Oximetry 96 02/13/24 07:06 Oxygen Delivery Method Room Air 02/13/24 07:06 Temperature 99.2 F 02/13/24 16:00 Pulse Rate 78 02/13/24 17:00 Respiratory Rate 14 02/13/24 17:00 Blood Pressure 120/74 02/13/24 17:00 Pulse Oximetry 92 02/13/24 17:00 Oxygen Delivery Method Room Air 02/13/24 17:00 Oxygen Flow Rate 0 02/13/24 17:00 <Abdirahman Sánchez MD - Last Filed: 02/15/24 08:37> Initial Vital Signs Temperature 96.8 F L 02/13/24 07:06 Temperature Source Temporal Artery Scan 02/13/24 07:06 Pulse Rate 59 L 02/13/24 07:06 Pulse Rhythm Regular 02/13/24 07:06 Respiratory Rate 20 02/13/24 07:06 Blood Pressure 169/85 H 02/13/24 07:06 Blood Pressure Mean 113 H 02/13/24 07:06 Blood Pressure Position Supine 02/13/24 07:06 Pulse Oximetry 96 02/13/24 07:06 Oxygen Delivery Method Room Air 02/13/24 07:06 Vital Signs Temperature 96.8 F L 02/13/24 07:06 Pulse Rate 59 L 02/13/24 07:06 Respiratory Rate 20 02/13/24 07:06 Blood Pressure 169/85 H 02/13/24 07:06 Pulse Oximetry 96 02/13/24 07:06 Oxygen Delivery Method Room Air 02/13/24 07:06 Temperature 99.2 F 02/13/24 16:00 Pulse Rate 78 02/13/24 17:00 Respiratory Rate 14 02/13/24 17:00 Blood Pressure 120/74 02/13/24 17:00 Pulse Oximetry 92 02/13/24 17:00 Oxygen Delivery Method Room Air 02/13/24 17:00 Oxygen Flow Rate 0 02/13/24 17:00 <Luly Sarabia MD - Last Filed: 02/13/24 13:12> Medications Administered Medications: Discontinued Medications Generic Name Dose Route Start Last Admin Trade Name Freq PRN Reason Stop Dose Admin Bupivacaine HCl 30 ml 02/13/24 14:23 02/13/24 14:15 Bupivacaine 0.5% 30 Ml INJECTION 02/13/24 14:24 20 ml ONCE ONE Administration Sodium Chloride 1,000 mls @ 1,000 mls/hr 02/13/24 08:00 02/13/24 09:23 0.9 % Sodium Chloride 1000 Ml IV 02/13/24 08:59 Infused .Q1H VARUN Infusion Lactated Ringer's 1,000 mls @ 100 mls/hr 02/13/24 13:45 02/13/24 17:38 Lactated Ringers 1000 Ml IV Infused .Q10H VARUN Infusion Piperacillin Sod/Tazobactam 100 mls @ 200 mls/hr 02/13/24 13:51 02/13/24 13:29 Sod 3.375 gm/ Sodium Chloride IVPB 02/13/24 13:52 200 mls/hr ONCE ONE Administration Lidocaine/Aluminum/Magnesium/Simeth 30 ml 02/13/24 11:40 02/13/24 12:03 Gi Cocktail (Visc Lido/Antacid) 30 Ml PO 02/13/24 11:41 30 ml ONCE ONE Administration Morphine Sulfate 4 mg 02/13/24 07:52 02/13/24 08:14 Morphine 4 Mg/Ml Inj IVP 02/13/24 07:53 4 mg ONCE ONE Administration Ondansetron HCl 4 mg 02/13/24 07:52 02/13/24 08:15 Ondansetron 2 Mg/Ml Inj IVP 02/13/24 07:53 4 mg ONCE ONE Administration <Abdirahman Sánchez MD - Last Filed: 02/15/24 08:37> Discontinued Medications Generic Name Dose Route Start Last Admin Trade Name Freq PRN Reason Stop Dose Admin Bupivacaine HCl 30 ml 02/13/24 14:23 02/13/24 14:15 Bupivacaine 0.5% 30 Ml INJECTION 02/13/24 14:24 20 ml ONCE ONE Administration Sodium Chloride 1,000 mls @ 1,000 mls/hr 02/13/24 08:00 02/13/24 09:23 0.9 % Sodium Chloride 1000 Ml IV 02/13/24 08:59 Infused .Q1H VARUN Infusion Lactated Ringer's 1,000 mls @ 100 mls/hr 02/13/24 13:45 02/13/24 17:38 Lactated Ringers 1000 Ml IV Infused .Q10H VARUN Infusion Piperacillin Sod/Tazobactam 100 mls @ 200 mls/hr 02/13/24 13:51 02/13/24 13:29 Sod 3.375 gm/ Sodium Chloride IVPB 02/13/24 13:52 200 mls/hr ONCE ONE Administration Lidocaine/Aluminum/Magnesium/Simeth 30 ml 02/13/24 11:40 02/13/24 12:03 Gi Cocktail (Visc Lido/Antacid) 30 Ml PO 02/13/24 11:41 30 ml ONCE ONE Administration Morphine Sulfate 4 mg 02/13/24 07:52 02/13/24 08:14 Morphine 4 Mg/Ml Inj IVP 02/13/24 07:53 4 mg ONCE ONE Administration Ondansetron HCl 4 mg 02/13/24 07:52 02/13/24 08:15 Ondansetron 2 Mg/Ml Inj IVP 02/13/24 07:53 4 mg ONCE ONE Administration <Luly Sarabia MD - Last Filed: 02/13/24 13:12> MDM - Abdominal Pain MDM Narrative Medical decision making narrative: During this evaluation of this patient I considered multiple differential diagnosis is which included the life-threatening such as appendicitis, aortic aneurysm, mesenteric ischemia, bowel perforation, volvulus, and bowel obstruction. Other differential diagnosis is include but are not limited to cholecystitis, pancreatitis, hepatitis, gastritis, GERD, diverticulitis, peptic ulcer disease, pyelonephritis/UTI, renal colic/stone, testicular torsion as well as other acute scrotal processes, inflammatory bowel disease, as well as other etiologies I do think the likelihood that this is either biliary colic or cholecystitis with plus or minus choledocholithiasis. Need to rule out pancreatitis also. I will order a CT IV blood tests little bit of morphine for pain along with Zofran. Sign him over to my oncoming ER physician for further delineation <Abdirahman Sánchez MD - Last Filed: 02/15/24 08:37> During this evaluation of this patient I considered multiple differential diagnosis is which included the life-threatening such as appendicitis, aortic aneurysm, mesenteric ischemia, bowel perforation, volvulus, and bowel obstruction. Other differential diagnosis is include but are not limited to cholecystitis, pancreatitis, hepatitis, gastritis, GERD, diverticulitis, peptic ulcer disease, pyelonephritis/UTI, renal colic/stone, testicular torsion as well as other acute scrotal processes, inflammatory bowel disease, as well as other etiologies I do think the likelihood that this is either biliary colic or cholecystitis with plus or minus choledocholithiasis. Need to rule out pancreatitis also. I will order a CT IV blood tests little bit of morphine for pain along with Zofran. Sign him over to my oncoming ER physician for further delineation No -- I received this patient had handoff at change of shift pending CT imaging and disposition. Imaging now resulted as below. Study:?CT-Abdomen/Pelvis 71CC ISOVUE 370-02/13/2024 9:23:31 AM Ordering Physician:?DR. SÁNCHEZ Final Report: INDICATION: Abdominal pain. Vomiting. Fever and chills. COMPARISON: 01/31/2023 TECHNIQUE: CT of the abdomen and pelvis with 71 cc of Isovue 370 intravenous contrast. Please note that all CT scans at this facility use dose modulation, iterative reconstruction, and/or weight-based dosing when appropriate to reduce radiation dose to as low as reasonably achievable. FINDINGS: ABDOMEN Liver: Normal hepatic attenuation. Intrahepatic extension of the macroscopic fat containing right adrenal mass described below. Otherwise no suspicious focal hepatic lesion. No intrahepatic biliary ductal dilatation. Patent portal vein. The hepatic veins are not yet opacified due to timing of imaging relative to contrast bolus administration on this early portal venous phase study. Gallbladder: Clustered dependent hyperdense subcentimeter foci in the gallbladder lumen (2; 52) consistent with cholelithiasis. Phrygian cap. Normal common duct caliber. No pericholecystic inflammatory changes. Pancreas: Normal pancreatic attenuation. No focal lesion. Normal duct caliber. No peripancreatic inflammatory changes. Spleen: Normal splenic attenuation. No suspicious focal lesion. Patent splenic artery and vein. Adrenal Glands: Chronic macroscopic fat containing right adrenal lesion measuring 5.4 x 6.0 x 7.2 cm (series 2; image 48 and 4; 84), compared to 5.2 x 5.8 x 6.9 cm on the prior study of 01/31/2023 (my measurements on 2; 52 and 4; 83). Note is again made of extension of this lesion into the right hepatic lobe at the junction between segments 6 and 7 (4; 86, for example). Unremarkable left adrenal gland. Kidneys: Normal bilateral renal attenuation. Stable 11 mm interpolar left renal cortical cyst. Stable too small to characterize round circumscribed homogeneous low-density finding in the medial aspect of the right lower pole renal cortex consistent with a Bosniak II benign renal cortical cysts. No suspicious focal lesion. No obstructing nephrolith or dilatation of the intrarenal collecting systems. Patent renal arteries and veins. Nondilated upper urinary tracts. Gastrointestinal tract: Normal caliber, attenuation and wall thickness of the gastrointestinal tract. Nonspecific moderate colonic fecal loading. No evidence of stercoral colitis. Sigmoid diverticulosis without associated inflammatory changes. Normal appendix. Vascular: Abdominal aorta and its major proximal branches including the celiac, superior mesenteric, inferior mesenteric, renal, and bilateral common iliac arteries are patent. Inferior vena cava, portal and superior mesenteric veins are patent. Additional findings: No incidental adenopathy. No significant ascites, free fluid or pneumoperitoneum. PELVIS No bladder lesion is identified. Mild prostatomegaly. The prostate measures 39 mL. No abnormal free fluid. No incidental adenopathy. SKELETON AND BODY WALL No acute or suspicious incidental findings. LOWER THORAX Partially included lower thoracic wall, lungs, pleural spaces and mediastinum are otherwise without significant incidental findings. IMPRESSION: 1. No acute imaging findings to explain the history of abdominal pain, vomiting, fever, and chills. 2. No significant interval enlargement of a macroscopic fat containing right adrenal lesion with apparent extension into the posterior right hepatic lobe. 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 Apparent intrahepatic extension is atypical, however. Again, subspecialty surgical referral is recommended for consideration of excision, if clinically appropriate. 3. Incidental findings described above. On reassessment has been sleeping. Upon waking does acknowledge some remaining pain but mild. I have reviewed labs. Mildly elevated white count but bilirubin and transaminases are normal. Ordered ultrasound. Spoke with manager software development noting extensive abdominal gas. Gallbladder wall 4 mm and normal duct. Did receive some GI cocktail and says that overall is improved. Denies history of significant heartburn/GERD. Radiology over-read as below Study:?US-Abdomen GB ONLY-02/13/2024 11:53:09 AM Ordering Physician:?LULY SARABIA Final Report: INDICATION: UPPER ABDOMINAL PAIN VOMITING, HISTORY OF CHOLEDOCHOLITHIAS TECHNIQUE: Ultrasound abdomen limited. Sonographic images of the right upper quadrant were obtained using pritchett-scale and color Doppler images. COMPARISON: Same day CT. FINDINGS: Gallbladder: The gallbladder is partially contracted with wall thickening most pronounced at the gallbladder neck measuring up to 4 mm. Few stones are seen within the gallbladder body. Negative sonographic Reardon`s sign. No pericholecystic fluid. Common bile duct: 5 mm. IMPRESSION: Cholelithiasis and mild gallbladder wall thickening. No additional sonographic features to suggest acute cholecystitis. Discussing his case with our surgeon. Further information -- following sphincterotomy last year, Mr. Merino was planned for evaluation for potential cholecystectomy I believe in [place]. Unfortunately he had to leave for [place] and this was never accomplished. He returned about a month ago. In the interim though over the last year he said he has not had any further episodes until last night. After consultation, surgeon is recommending surgical intervention today. <Luly Sarabia MD - Last Filed: 02/13/24 13:12> Medical Records Attestation: I reviewed the patient's medical records. <Abdirahman Sánchez MD - Last Filed: 02/15/24 08:37> Lab Data Labs: Lab Results 02/13/24 02/13/24 Range/Units 08:14 Unknown WBC 12.26 H (4.50-11.00) K/uL RBC 4.74 (4.30-5.90) m/uL Hgb 14.3 (13.5-17.5) gm/dL Hct 42.9 (37.0-53.0) % MCV 91 (80-100) fL MCH 30 (26-34) pg MCHC 33 (32-36) gm/dL RDW Coeff of Natalya 12.9 (11.5-15.5) % Plt Count 242 (140-440) K/uL Neut % (Auto) 88.9 H (42.0-72.0) % Lymph % (Auto) 6.3 L (20-44) % [place] % (Auto) 4.4 (0.0-11.0) % Eos % (Auto) 0.1 (0.0-7.0) % Baso % (Auto) 0.1 (0.0-3.0) % Neut # (Auto) 10.90 H (1.7-7.0) K/uL Lymph # (Auto) 0.80 L (0.90-2.90) K/uL [place] # (Auto) 0.50 (0.00-0.90) K/UL Eos # (Auto) 0.00 (0.00-0.50) K/uL Baso # (Auto) 0.00 (0.00-0.30) K/uL Abs Immat Gran (auto) 0.00 (0.00-0.30) K/uL Imm/Tot Granulo (auto) 0.2 % Sodium 137 (135-149) mmol/L Potassium 3.6 (3.6-5.1) mmol/L Chloride 105 (96-114) mmol/L Carbon Dioxide 28 (20-32) mmol/L Anion Gap 4 L (7-15) mEq/L BUN 19 (7-30) mg/dL Creatinine 0.6 (0.5-1.5) mg/dL Estimated Creat Clear 59.20 Estimated GFR 105 ml/min Glucose 178 H (60-115) mg/dL Calcium 9.1 (8.4-10.6) mg/dL Total Bilirubin 0.5 (0.1-1.5) mg/dL Direct Bilirubin 0.0 (0.0-0.5) mg/dL AST 21 (12-35) U/L ALT 24 (4-50) U/L Alkaline Phosphatase 64 (40-150) U/L Total Protein 7.6 (6.0-8.3) g/dL Albumin 4.1 (3.3-5.0) g/dL Amylase 68 (18-89) U/L Lipase 95 (23-300) U/L Urine Color Yellow (Yellow) Urine Appearance Clear (Clear) Urine pH 7.5 (5.0-8.5) Ur Specific Hurricane 1.015 (1.000-1.030) Urine Protein Negative (Negative) Urine Glucose (UA) Negative (Negative) Urine Ketones Negative (Negative) Urine Blood Negative (Negative) Urine Nitrite Negative (Negative) Urine Bilirubin Negative (Negative) Urine Urobilinogen 0.2 (0.2-1.0) Ur Leukocyte Esterase Negative (Negative) Urine RBC 0-2 (0-2) Urine WBC 0-2 (0-5) Ur Squamous Epith Cells None (None-Few) Urine Bacteria None (None) Ethyl Alcohol < 0.01 L (0.01-0.03) % POC Troponin I 0.00 L (0.01-0.04) ng/ml <Abdirahman Sánchez MD - Last Filed: 02/15/24 08:37> Lab Results 02/13/24 02/13/24 Range/Units 08:14 Unknown WBC 12.26 H (4.50-11.00) K/uL RBC 4.74 (4.30-5.90) m/uL Hgb 14.3 (13.5-17.5) gm/dL Hct 42.9 (37.0-53.0) % MCV 91 (80-100) fL MCH 30 (26-34) pg MCHC 33 (32-36) gm/dL RDW Coeff of Natalya 12.9 (11.5-15.5) % Plt Count 242 (140-440) K/uL Neut % (Auto) 88.9 H (42.0-72.0) % Lymph % (Auto) 6.3 L (20-44) % [place] % (Auto) 4.4 (0.0-11.0) % Eos % (Auto) 0.1 (0.0-7.0) % Baso % (Auto) 0.1 (0.0-3.0) % Neut # (Auto) 10.90 H (1.7-7.0) K/uL Lymph # (Auto) 0.80 L (0.90-2.90) K/uL Walthall # (Auto) 0.50 (0.00-0.90) K/UL Eos # (Auto) 0.00 (0.00-0.50) K/uL Baso # (Auto) 0.00 (0.00-0.30) K/uL Abs Immat Gran (auto) 0.00 (0.00-0.30) K/uL Imm/Tot Granulo (auto) 0.2 % Sodium 137 (135-149) mmol/L Potassium 3.6 (3.6-5.1) mmol/L Chloride 105 (96-114) mmol/L Carbon Dioxide 28 (20-32) mmol/L Anion Gap 4 L (7-15) mEq/L BUN 19 (7-30) mg/dL Creatinine 0.6 (0.5-1.5) mg/dL Estimated Creat Clear 59.20 Estimated GFR 105 ml/min Glucose 178 H (60-115) mg/dL Calcium 9.1 (8.4-10.6) mg/dL Total Bilirubin 0.5 (0.1-1.5) mg/dL Direct Bilirubin 0.0 (0.0-0.5) mg/dL AST 21 (12-35) U/L ALT 24 (4-50) U/L Alkaline Phosphatase 64 (40-150) U/L Total Protein 7.6 (6.0-8.3) g/dL Albumin 4.1 (3.3-5.0) g/dL Amylase 68 (18-89) U/L Lipase 95 (23-300) U/L Urine Color Yellow (Yellow) Urine Appearance Clear (Clear) Urine pH 7.5 (5.0-8.5) Ur Specific Hurricane 1.015 (1.000-1.030) Urine Protein Negative (Negative) Urine Glucose (UA) Negative (Negative) Urine Ketones Negative (Negative) Urine Blood Negative (Negative) Urine Nitrite Negative (Negative) Urine Bilirubin Negative (Negative) Urine Urobilinogen 0.2 (0.2-1.0) Ur Leukocyte Esterase Negative (Negative) Urine RBC 0-2 (0-2) Urine WBC 0-2 (0-5) Ur Squamous Epith Cells None (None-Few) Urine Bacteria None (None) Ethyl Alcohol < 0.01 L (0.01-0.03) % POC Troponin I 0.00 L (0.01-0.04) ng/ml <Luly Sarabia MD - Last Filed: 02/13/24 13:12> Discharge Plan Discharge Clinical Impression: Acute cholecystitis, Cholelithiasis <Abdirahman Sánchez MD - Last Filed: 02/15/24 08:37> Patient Disposition: XFER to OR <Abdirahman Sánchez MD - Last Filed: 02/15/24 08:37> Condition: Stable <Abdirahman Sánchez MD - Last Filed: 02/15/24 08:37>
[2024-02-13] MEDS: MORPHINE 4 MG/ML INJ IVP (08:14)
[2024-02-13] MEDS: 0.9 % SODIUM CHLORIDE 1000 ml 1,000 ML IV (08:15)
[2024-02-13] MEDS: ONDANSETRON 2 MG/ML inj 4 MG IVP (08:15)
--- OUTSIDE RECORDS SUMMARY | 2024-02-13 08:17 | XMS_ITS | Data Portability ---
Author Name Unknown Address [address] [place] [id number] Phone [phone] Organization [facility] Shania hollins [facility] Address [address] [place] [address] [place] [address] Assessment No assessment recorded. Plan of Treatment Reminders Order Date Submit Date Provider Last Modified By Organization Details Last Modified Time Details Appointments None recorded. Lab None recorded. Referral None recorded. Procedures None recorded. Surgeries None recorded. Imaging None recorded. Medication Orders prednisone 20 mg tablet 2019 020 ATHENAFAX Not available 0 20:01:48 triamcinol one acetonide 0.5 % topical cream 2019 020 ATHENAFAX Not available 0 19:55:06 Patient TargetsNo targets recorded. Patient Instructions Encounter Date Encounter Id Patient Instructions Last Modified By Organization Details Last Modified Time 02/22/2021 [id number] call if not better ankit Not available 02/22/2021 18:09:51 06/02/2020 [id number] dermatitis: care instructions [email or web address] Not available 06/02/2020 19:54:11 Take the pills x 4 days and use the cream twice daily. If not all better in 10 days, come back to clinic, see me if possible. [email or web address] Not available 06/02/2020 19:55:06 Reason for Referral None Reported. Medical Equipment None Reported. Medications Name Sig Start Date Stop Date Status Note LastModified by Organization Details LastModified Time triamcinolo ne acetonide 0.5 % topical cream APPLY A THIN LAYER TO rash on arms and hands 2 TIMES PER DAY 2020 active Not Available Not Available Not Avai lable prednisone 20 mg tablet TAKE ONE TABLET BY MOUTH EVERY MORNING FOR 4 DAYS active Not Available Not Available No t Available triamcinolo ne acetonide 0.1 % topical cream APPLY A THIN LAYER TO RASH ON ARMS AND HANDS TWICE A DAY active Not Available Not Available No t Available hydrocortis one 1 % topical cream APPLY TO AFFECTED AREA(S) EVERY DAY DIRECTED active Not Available Not Available No t Available Bactrim DS 800 mg-160 mg tablet take 1 tablet by oral route every 12 hours 02/22 completed Not Available Not Available Not Available Vitals Date Recorded Heart rate Body temperature Systolic blood pressure Diastolic blood pressure Provider Name and Address Organization Details Last Updated DateTime 06/02/2020 70 /min 97.6 [degF] 165 mm[Hg] 91 mm[Hg] Michaela Canela MD [address] [place], [address] , [place] [facility] 0 03:34:21 Date Recorded Systolic blood pressure Diastolic blood pressure Provider Name and Address Organization Details Last Updated DateTime 04/06/2015 104 mm[Hg] 63 mm[Hg] Not Available [facility] 0 05/11/2020 12:57:41 Date Recorded Systolic blood pressure Diastolic blood pressure Provider Name and Address Organization Details Last Updated DateTime 01/12/2015 110 mm[Hg] 72 mm[Hg] Not Available [facility] 0 05/11/2020 12:57:41 Date Recorded Systolic blood pressure Diastolic blood pressure Provider Name and Address Organization Details Last Updated DateTime 07/14/2014 117 mm[Hg] 75 mm[Hg] Not Available [facility] 0 05/11/2020 12:57:41 Date Recorded Systolic blood pressure Diastolic blood pressure Provider Name and Address Organization Details Last Updated DateTime 06/30/2014 126 mm[Hg] 77 mm[Hg] Not Available [facility] 0 05/11/2020 12:57:41 Date Recorded Systolic blood pressure Diastolic blood pressure Provider Name and Address Organization Details Last Updated DateTime 04/27/2015 130 mm[Hg] 80 mm[Hg] Not Available [facility] 0 05/11/2020 12:57:41 Date Recorded Systolic blood pressure Diastolic blood pressure Systolic blood pressure Diastolic blood pressure Provider Name and Address Organization Details Last Updated DateTime 07/07/2014 131 mm[Hg] 77 mm[Hg] 136 mm[Hg] 77 mm[Hg] Not Available [facility] 0 12:57:41 Social History None recorded. Functional Status None recorded. Mental Status None recorded. Family History Nothing Reported. Medical History No medical history recorded. Past Encounters Encounter ID Performer Location Encounter Start Date Encounter Closed Date Diagnosis/Indication Diagnosis SNOMED-CT Code [id number] Colby Canela MD [facility] [address] [place] [address] 06/02/2020 18:37:07 06/02/2020 20:07:30 Contact dermatitis [id number] Steve Tee MD [facility] [address] [place] [address] [place] [address] 02/22/2021 17:43:14 02/22/2021 18:32:19 Contact dermatitis [id number] Health Concerns Section Related Observation LastModified by Organization Detai ls LastModified Time None Recorded Concern Status LastModified by Organization Details LastModified Time None Recorded Advance Directives Directive None Recorded Payers Encounter Date Sequence Insurance Name Policy Number Policy Aquino Covered Member ID Aquino Member ID Guarantor Name 02/22/2021 SLIDING FEE SCHEDULE - DISCOUNT Stefan Merino 06/02/2020 SLIDING FEE SCHEDULE - DISCOUNT Stefan Merino Notes Date Note Type Note Provider Name and Address Organization Details Recorded Time 06/02/2020 text/html HPI Notes: Same as last year (saw me in late April 2019), there is some plant he comes in contact with where he works (now [employer]) that causes itchy, bumpy rash and thickened skin on hands and arms only. Never on neck, face, or torso. No resp sxs, no wheezing, no GI sxs, and sleeping ok, itch is not so bad this year. He thinks he may know which plant causes this and will try harder to avoid it. No problem rest of the season. Has done this for many years. Colby Canela MD [address] [place], [address], [facility] [employer] 06/03/2020 03:38:16 02/22/2021 text/html HPI Notes: every spring rash breaks out from exposure to pine, receives rx and then no more probs, no diabetes Steve Tee MD [address] [place], [address], [facility] [employer] 02/22/2021 18:10:53
--- OUTSIDE RECORDS SUMMARY | 2024-02-13 08:17 | XMS_ITS | Clinical Summary ---
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 Resolved Problems Problem Noted Date Diagnosed Date Resolved Date Rash 08/20/2015 08/20/2015 Overview: eczema VS psoriasis Family History Relation Name Status Comments Brother Alive Daughter Alive Father Mother Alive Sister Alive Son Alive Social History Tobacco Use Types Packs/Day Years Used Date Smoking Tobacco: Never Smokeless Tobacco: Never Alcohol Use Standard Drinks/Week Comments No 0 (1 standard drink = 0.6 oz pur e alcohol) Sex and Gender Information Value Date Recorded Sex Assigned at Not on file Gender Identity Not on file Sexual Orientation Not on file Obstetrics History Last Filed Vital Signs Vital Sign Reading Time Taken Comments Blood Pressure 138/79 02/02/2023 6:15 PM CDT Pulse 65 02/02/2023 6:15 PM CDT Temperature 36.2 ??C (97.2 ??F) 02/02/2023 4:00 PM CD T Respiratory Rate 16 02/02/2023 5:15 PM CDT Oxygen Saturation 91% 02/02/2023 6:15 PM CDT Inhaled Oxygen Concentration - - Weight 62.1 kg (137 lb) 02/02/2023 2:28 PM CDT Height 162.6 cm (5' 4) 02/02/2023 2:28 PM CDT Body Mass Index 23.52 02/02/2023 2:28 PM CDT Plan of Treatment Health Maintenance Due Date Last Done Comments Tdap 1966 Depression screening for age 12+ 1967 BMI (ht and wt on same day) for age 18+ 1973 Hepatitis C screening for age 18-79 1973 Tetanus booster 1975 Colonoscopy through age 75 02/20/2000 Lipids for age 45-75 02/20/2000 Zoster (shingles) series for age 50+ (1 of 2) 02/20/20 05 Pneumococcal series for age 65+ (1 of 1 - PCV) 020 COVID-19 vaccine series (2022-24 season) 3 Influenza for age 65+ 06/23/2024 Advance Directives * Full Code (Latest Code Status on File) Date Activated Date Inactivated Comments 02/02/2023 2:35 PM 02/02/2023 8:30 PM Question Answer Comments Code Status Discussion: Unable to Assess Preferences, Provider to review later Care Teams Branch Account Manager Relationship Specialty Start Date End Date Ernestina Nicholson NP [address] [place] [address] PCP - General Family Practice 08/20/15
[2024-02-13 08:23] LABS: Basophils Percent Auto 0.1 % (0.0-3.0); Eosinophils Percent Auto 0.1 % (0.0-7.0); Hematocrit 42.9 % (37.0-53.0); Hemoglobin* 14.3 gm/dL (13.5-17.5); Immature Granulocytes Pct Auto 0.2 %; Lymphocytes Percent Auto 6.3 % (20-44); Mean Corpuscular HGB Conc 33 gm/dL (32-36); Mean Corpuscular Hemoglobin 30 pg (26-34); Mean Corpuscular Volume 91 fL (80-100); Monocytes Percent Auto 4.4 % (0.0-11.0); Neutrophils Percent Auto 88.9 % (42.0-72.0); Platelet Count* 242 K/uL (140-440); RDW Coefficient of Variation % 12.9 % (11.5-15.5); Red Blood Count 4.74 m/uL (4.30-5.90); White Blood Count* 12.26 K/uL (4.50-11.00)
[2024-02-13 08:29] LABS: Slide Review Reflex No
[2024-02-13 08:38] LABS: Albumin* 4.1 g/dL (3.3-5.0); Chloride* 105 mmol/L (96-114)
[2024-02-13 08:39] LABS: Potassium* 3.6 mmol/L (3.6-5.1); Sodium* 137 mmol/L (135-149)
[2024-02-13 08:41] LABS: Amylase* 68 U/L (18-89); Anion Gap 4 mEq/L (7-15); Blood Urea Nitrogen* 19 mg/dL (7-30); Carbon Dioxide* 28 mmol/L (20-32); Creatinine* 0.6 mg/dL (0.5-1.5); Estimated Glomerular Filt Rate 105 ml/min; Total Protein* 7.6 g/dL (6.0-8.3)
[2024-02-13 08:42] LABS: Alanine Aminotransferase* 24 U/L (4-50); Alkaline Phosphatase* 64 U/L (40-150); Aspartate Amino Transferase* 21 U/L (12-35); Bilirubin Total* 0.5 mg/dL (0.1-1.5); Calcium* 9.1 mg/dL (8.4-10.6); Glucose* 178 mg/dL (60-115); Lipase* 95 U/L (23-300)
[2024-02-13 08:47] LABS: Ethanol* < 0.01 % (0.01-0.03)
[2024-02-13 10:04] LABS: Appearance Urine Clear (Clear); Bilirubin Urine Negative (Negative); Blood Urine Negative (Negative); Color Urine Yellow (Yellow); Glucose Urine Negative (Negative); Ketones Urine Negative (Negative); Leukocyte Esterase Urine Negative (Negative); Nitrite Urine Negative (Negative); Protein Urine Negative (Negative); Specific Gravity Urine 1.015 (1.000-1.030); Urobilinogen Urine 0.2 (0.2-1.0); pH Urine 7.5 (5.0-8.5)
[2024-02-13 10:50] LABS: RBC Urine 0-2 (0-2); WBC Urine 0-2 (0-5)
--- NOTE | 2024-02-13 10:59 | US_ITS ---
Patient: BRYAN KERR Facility:?[facility] Patient ID:?[id number] Site Patient ID:?[id number]. Site :?1955 Study:?US-Abdomen GB ONLY-02/13/2024 11:53:09 AM Ordering Physician:SHAHBAZ KRUSE Final Report: INDICATION: UPPER ABDOMINAL PAIN VOMITING, HISTORY OF CHOLEDOCHOLITHIAS TECHNIQUE: Ultrasound abdomen limited. Sonographic images of the right upper quadrant were obtained using pritchett-scale and color Doppler images. COMPARISON: Same day CT. FINDINGS: Gallbladder: The gallbladder is partially contracted with wall thickening most pronounced at the gallbladder neck measuring up to 4 mm. Few stones are seen within the gallbladder body. Negative sonographic Reardon`s sign. No pericholecystic fluid. Common bile duct: 5 mm. IMPRESSION: Cholelithiasis and mild gallbladder wall thickening. No additional sonographic features to suggest acute cholecystitis. Dictated by Michela Fernandez MD @ 02/13/2024 12:14:19 PM Signed by:?Michela Fernandez MD @02/13/2024 12:14:19 PM (Electronic Signature)
[2024-02-13] MEDS: GI COCKTAIL (VISC LIDO/ANTACID) 30 ML PO (12:03)
[2024-02-13] MEDS: PIPERACILLIN/TAZOBACTAM 3.375 GM in 0.9 % SODIUM CHLORIDE Mini-bag 100 ML IVPB (13:29)
--- OUTSIDE RECORDS SUMMARY | 2024-02-13 13:42 | XMS_ITS | Clinical Summary ---
Author Name Unknown Organization [facility] Address [place], [place] [address] Care Team Providers Care Biometrics Analyst Name Role Phone Lyn Ernestina JAY JAY Primary Care Provider [phone] Allergies No known active allergies Medications Medication [...] Preferences, Provider to review later Care Teams Biometrics Analyst Relationship Specialty Start Date End Date Ernestina Nicholson NP [address] [place] [address] PCP - General Family Practice 08/20/15
--- NOTE | 2024-02-13 14:07 | W.ANESCHARGE ---
Anesthesia Charges Start Date/Time Anesthesia Start Date: 02/13/24 Anesthesia Start Time: 13:25 Stop Date/Time Anesthesia Stop Date: 02/13/24 Anesthesia Stop Time: 15:24 Summary Emergency: MDA
[2024-02-13] MEDS: BUPIVACAINE 0.5% 30 ML INJECTION (14:15)
--- NOTE | 2024-02-13 15:18 | PM.GSHP ---
History of Present Illness History of Present Illness Date Seen: 02/13/24 Chief complaint: stomach pain Narrative: Stefan Merino is a 68 year old male who presented to the emergency department with right upper quadrant abdominal pain. The pain started yesterday evening after he ate some guacamole and bread. Reports some associated nausea, no vomiting. No diarrhea. No fevers at home. He has never had abdominal surgery before. He has had pain like this before and was in the hospital last year for choledocholithiasis. At that time he underwent an ERCP with removal of the stone. He was scheduled to follow-up with a surgeon in [place], but ended up needing to go to [place] emergently. He just got back from [place] 1 month earlier. Patient was interviewed with assistance from a video community service director. Review of Systems Status of ROS: Reports: 10 or more systems reviewed and unremarkable except as noted in History and below [facility] Social History Smoking Status: Never smoker Do you use any of these nicotine containing products: None Second hand tobacco smoke exposure: No How often do you have a drink containing alcohol: never How often do you have six or more drinks on one occasion: Never AUDIT-C Alcohol total score: 0 Non-prescribed substance use: denies use service: No Meds Home Medications and Allergies Allergies Allergy/AdvReac Type Severity Reaction Status Date / Time No Known Drug Allergies Allergy Verified 02/13/24 09:28 Exam Narrative: Exam Narrative: General: Alert and oriented, no acute distress Respiratory: Equal breath rise bilaterally, maintained on room CV: Well perfused Abdomen: Soft, mild tenderness to deep palpation right upper quadrant. No guarding or rebound. Positive Reardon's. Const: Vital Signs, click to edit/add: Vital Signs - 24 hr 02/13/24 07:06 02/13/24 08:35 02/13/24 08:45 Temperature 96.8 F L Pulse Rate 55 L 55 L Pulse Rate [Pulse Oximeter] 59 L Respiratory Rate 20 Blood Pressure Blood Pressure [Ri ght Upper Arm] 169/85 H Pulse Oximetry 96 96 96 Oxygen Delivery Me thod Room Air 02/13/24 09:00 02/13/24 09:16 02/13/24 09:30 Temperature Pulse Rate 54 L 60 58 L Pulse Rate [Pulse Oximeter] Respiratory Rate Blood Pressure 127/88 Blood Pressure [Ri ght Upper Arm] Pulse Oximetry 96 99 97 Oxygen Delivery Me thod 02/13/24 09:49 02/13/24 10:00 02/13/24 10:15 Temperature Pulse Rate 54 L 55 L 51 L Pulse Rate [Pulse Oximeter] Respiratory Rate Blood Pressure Blood Pressure [Ri ght Upper Arm] Pulse Oximetry 97 96 97 Oxygen Delivery Me thod 02/13/24 10:30 02/13/24 10:45 02/13/24 11:00 Temperature Pulse Rate 53 L 54 L 52 L Pulse Rate [Pulse Oximeter] Respiratory Rate Blood Pressure Blood Pressure [Ri ght Upper Arm] Pulse Oximetry 96 96 97 Oxygen Delivery Me thod 02/13/24 11:15 02/13/24 11:30 02/13/24 11:45 Temperature Pulse Rate 54 L 68 55 L Pulse Rate [Pulse Oximeter] Respiratory Rate Blood Pressure Blood Pressure [Ri ght Upper Arm] Pulse Oximetry 96 96 96 Oxygen Delivery Me thod 02/13/24 12:00 02/13/24 12:01 Temperature Pulse Rate 57 L 55 L Pulse Rate [Pulse Oximeter] Respiratory Rate Blood Pressure 159/81 H Blood Pressure [Ri ght Upper Arm] Pulse Oximetry 96 97 Oxygen Delivery Me thod Results Results Labs: Mild leukocytosis (12). LFTs within normal limits. Abdominal ultrasound report/results: report reviewed Additional studies: Abdominal ultrasound reviewed, evidence of cholelithiasis. Edema of the gallbladder wall. Progress Note:A&P Assessment and plan (1) Acute cholecystitis: Status: Acute Plan Patient with clinical history and workup concerning for acute cholecystitis. Given his normal LFTs, low concern at this time for choledocholithiasis. I had a detailed conversation with the patient regarding the diagnosis of acute cholecystitis. We discussed the treatment options including observation with diet modification and laparoscopic cholecystectomy. We discussed the risks of surgery (including but not limited to) the risks of bleeding, infection, injury to other structures in the abdomen including bile duct injury, bile leak and conversion to an open operation. We discussed the possibility that the patient's pain not improve with surgery. We discussed the possibility of permanent post-operative diarrhea that may require medical management. Additionally, the conceivably of complications requiring additional surgery or further hospitalization were also discussed including the risks of NC, respiratory failure, stroke and blood clots. The patient voiced an understanding of our conversation, had the opportunity to ask questions, agreed to accept the risks of surgery and asked that we proceed with surgery. -OR for laparoscopic cholecystectomy
--- NOTE | 2024-02-13 15:22 | P.GSOP_ITS ---
Operative Note Date of procedure: 02/13/24 Pre-op diagnosis: Acute cholecystitis Post-op diagnosis: Same Type of Procedure: Laparoscopic cholecystectomy Indications: Patient is a 68-year-old male who presented to the emergency department with clinical history consistent with acute cholecystitis. Risks and benefits of operative intervention were discussed at length with the patient. Risks included but was not limited to: Bleeding, infection, risk of damage to surrounding structures, possible need for additional procedures, possible need to convert to an open operation and postoperative complications such as pneumonia, pulmonary emboli or [place]. All questions and concerns were addressed with the patient agreeing to proceed. Patient was consented with the assistance of a video stick puller. Procedure Description: After discussing the risks and benefits of the procedure, the patient signed informed consent.? The operative site was marked and the patient was brought to the operating room and placed on the operating table in supine position.? Care was taken to pad the patient's pressure points.?? The patient was then intubated by anesthesia.?? The operative site was then prepped and draped in the usual sterile fashion.? A time-out was then performed. Entrance to the abdomen was gained via a 5 mm Visiport in the left upper quadrant. The abdomen was insufflated and briefly surveyed for signs of injury. There was none. Evidence of omental adhesions within the upper midline of the abdomen and to the anterior side of the liver. An 11 mm supra umbilical port was placed as well as 2 working ports along the right costal margin. An additional 5 mm port was placed subxiphoid. Patient was then placed in reverse Trendelenburg position with the right side up. The gallbladder fundus was difficult to grasp and distended. A laparoscopic needle was used to decompress approximately 30 mL of bilious fluid. The fundus was then able to be grasped and retracted cephalad. A significant amount of omental adhesions were present surrounding the superior aspect of the gallbladder. These were carefully taken down with hook cautery. During this portion of the dissection the fundus was partially torn with retraction. Three stones did spill into the abdomen and were retrieved. The gallbladder body was then grasped and retracted. The infundibulum was grasped. A combination of hook cautery and blunt dissection was used to carefully dissect out the cystic duct and artery until they could clearly be seen entering the gallbladder without any intervening structures. The gallbladder was dissected off the cystic plate to achieve the critical view. Once this was achieved the cystic duct and artery were each clipped with 2 clips proximally and 1 clip distally and transected with the scissors. The gallbladder was then taken off of the liver bed. During this portion of the procedure the clips on the specimen fell off, these went into the gallbladder fossa and were unable to be retrieved. The proximal clips on the cystic duct and artery remained in place throughout the entirety of the procedure. Once the gallbladder was taken off of the liver bed it was removed from the abdomen using an Endo-Catch bag. The gallbladder bed was surveyed for hemostasis. A small ede unt of bile which had spilled was suctioned from the abdomen the ports were then removed under direct vision. The umbilical port fascia was closed with 0 Vicryl. The skin was closed with absorbable subcuticular suture. Instrument sponge and needle counts were correct at the end of the case. The patient was then woken and transferred to the PACU in stable condition. Findings: Acute cholecystitis. Anesthesia: GETA Surgeon: Edilma Fleming MD Estimated blood loss (mL): 10 Specimen: Gallbladder Condition: stable Disposition: PACU
[2024-02-13] MEDS: LACTATED RINGERS 1000 ML 1,000 ML 100 ML IV (15:30)
== END 2024-02-13 17:39 | disposition home or self-care (01) ==
LOC: ED 13:08 → OR 13:40
PROVIDERS: Emergency Provider Family Medicine; Visit Provider Surgery
PROC: 0FT44ZZ Resection of Gallbladder, Percutaneous Endoscopic Approach (ICD-10-PCS; CPT 47562; principal; 2024-02-13 13:15)
DX: K80.00 Calculus of gallbladder with acute cholecystitis without obstruction (principal); R10.11 Right upper quadrant pain
CPT/HCPCS: 47562; 00790; 36415; 74177; 76705; 80048; 80076; 81001; 82077; 82150; 83690; 84484; 85025; 88304; 93005; 99140; 99284; 99285; T1013; A9270; J0330; J0665; J1100; J1885; J2250; J2270; J2405; J2543; J2704; J3010; J7030; J7120; Q9967